=== PATIENT | female | born 1950 | race Caucasian/White ===

== ENCOUNTER → 2016-06-25 | Outpatient (CLI) | payer MEDICARE, OTHER | LOC: RAD 07:24 | PROVIDERS: ATTEND Orthopaedic Surgery | DX: T84.498A Other mechanical complication of other internal orthopedic devices, implants and grafts, initial encounter (principal); Z96.652 Presence of left artificial knee joint | CPT/HCPCS: 78315; A9503; Q9969 ==

== ENCOUNTER → 2016-09-07 | Outpatient (CLI) | payer MEDICARE, OTHER | LOC: WI 08:05 | PROVIDERS: ATTEND Family Medicine | DX: Z12.31 Encounter for screening mammogram for malignant neoplasm of breast (principal) | CPT/HCPCS: 77067; G0202 ==

== ENCOUNTER → 2017-02-02 | Outpatient (CLI) | payer MEDICARE, OTHER ==
--- NOTE | 2017-02-02 15:45 | RADIOLOGY REPORT (SQ) ---
EXAM DESCRIPTION: KUB COMPLETED DATE/TIME: 02/02/2017 10:00 am REASON FOR STUDY: CALCULUS OF KIDNEY N20.2 CALCULUS OF KIDNEY WITH CALCULUS OF URETER COMPARISON: KUB 06/04/2016, 02/18/2016, CT abdomen pelvis 12/25/2015 NUMBER OF VIEWS: One view. TECHNIQUE: Supine radiographic image of the abdomen acquired. LIMITATIONS: Motion artifact FINDINGS: BOWEL GAS PATTERN: Normal bowel gas pattern. No dilated loops. CALCIFICATIONS: 8-9 mm stone in the right lower pole kidney is unchanged. Next no calculi over the e xpected location of the right or left ureters. Unchanged calcified pelvic phleboliths. SOFT TISSUES: No gross mass or suggestion of organomegaly. HARDWARE: Lumbar fusion BONES: No acute fracture. No worrisome bone lesions. OTHER: No other significant finding. IMPRESSION: 8 to 9 mm stone over the right lower pole kidney. Motion artifact on the films. No radiopaque calculi over the expected course of the right or left ur eters. TECHNICAL DOCUMENTATION: JOB ID: [id number] [employer]™- All Rights Reserved
== END ==
LOC: OD 09:50
PROVIDERS: ATTEND Family Medicine
DX: N20.2 Calculus of kidney with calculus of ureter (principal)
CPT/HCPCS: 74000

== ENCOUNTER → 2017-02-12 | Outpatient (CLI) | payer MEDICARE, OTHER ==
--- NOTE | 2017-02-12 10:31 | RADIOLOGY REPORT (SQ) ---
EXAM DESCRIPTION: CT ABD/PELVIS NO ORAL OR IV COMPLETED DATE/TIME: 02/12/2017 7:17 am REASON FOR STUDY: KIDNEY STONE (N20.2) N20.2 CALCULUS OF KIDNEY WITH CALCULUS OF URETER COMPARISON: 12/25/2015 TECHNIQUE: CT scan of the abdomen and pelvis performed without intravenous or oral contrast. Images reviewed with lung, soft tissue, and bone windows. Reconstructed coronal and sagittal MPR images revi ewed. All images stored on PACS. All CT scanners at this facility use dose modulation, iterative reconstruction, and/or weight based d osing when appropriate to reduce radiation dose to as low as reasonably achievable (ALARA). [facility]: Dose Right [facility]: CareDose [facility]: Dose Right [facility]: Teradose 4D [facility]: Smart Technologies RADIATION DOSE: Up-to-date CT equipment and radiation dose reduction techniques were employed. CTDIv ol: 25.1 mGy. DLP: 1441 mGy-cm.mGy. LIMITATIONS: None. FINDINGS: LOWER CHEST: There is a limited area of ground-glass opacification in the left base anteri sebas on image 7. This is nonspecific. NON-CONTRASTED LIVER, SPLEEN, ADRENALS: The liver is diffusely hypodense to a mild degree. No mass i s present spleen and adrenal glands are normal PANCREAS: No masses. No peripancreatic inflammatory changes. GALLBLADDER: Surgically absent. RIGHT KIDNEY AND URETER: No suspicious masses. Assessment limited by lack of IV contrast. There is a tiny nonobstructing intrarenal calculus in the upper pole. There is a 10 mm nonobstructing calculu s the lower pole. No hydronephrosis or hydroureter. LEFT KIDNEY AND URETER: No suspicious masses. Assessment limited by lack of IV contrast. A couple o f very small nonobstructing intrarenal calculi are present. No hydronephrosis or hydroureter. AORTA AND RETROPERITONEUM: No aneurysm. No retroperitoneal masses or adenopathy. BOWEL AND PERITONEAL CAVITY: Descending colon and sigmoid diverticula are present. There are no acut e inflammatory changes. No obvious masses. APPENDIX: Surgically absent. PELVIS, BLADDER, AND ABDOMINAL WALL:The urinary bladder is incompletely filled but otherwise unremark able. The uterus is normal for age. There is no adnexal mass or fluid collection. BONES: Posterior rods are present in the spine from L3-L5. No osseous lesions are seen. Thoracolumb ar spondylosis is present. OTHER: No other significant finding. IMPRESSION: 1. Nephrolithiasis with no ureteral stone or obstruction. 2. Fatty infiltration of the liver. 3. Diverticulosis coli. 4. There is a limited area of nonspecific ground-glass opacification in the left lower lobe. COMMENT: Quality ID # [id number]: Final reports with documentation of one or more dose reduction techniques (e.g., Automated exposure control, adjustment of the mA and/or kV according to patient size, use of iterative reconstruction technique) TECHNICAL DOCUMENTATION: JOB ID: [id number] [employer]- All Rights Reserved
== END ==
LOC: RAD 06:53
PROVIDERS: ATTEND Family Medicine
DX: N20.2 Calculus of kidney with calculus of ureter (principal)
CPT/HCPCS: 74176

== ENCOUNTER 2017-06-01 22:23 | Emergency (ER) | payer MEDICARE, OTHER ==
[2017-06-01 22:33] VITALS: BP 150/80
[2017-06-02] MEDS ORDERED: LIDOCAINE 5% (700 MG) TRANSDERMAL ADH..PATCH TP ONE (00:05)
[2017-06-02] MEDS ORDERED: MORPHINE SULFATE IR 15 MG TABLET PO ONE (00:05)
[2017-06-02] MEDS ORDERED: ACETAMINOPHEN 325 MG TABLET PO ONE (00:05)
[2017-06-02] MEDS ORDERED: KETOROLAC TROMETHAMINE 60 MG/2 ML SDV IM ONE (00:06)
--- NOTE | 2017-06-02 00:07 | ER Document Report ---
ED General - General Chief Complaint: Back Pain Stated Complaint: BACK PAIN Time Seen by Provider: 06/01/17 23:31 Notes: Patient is a 67-year-old female with a past medical history of a prior lumbar spinal surgery with fusion who presents after developing a sudden, severe pain to her mid low back. Patient states that she was moving around her house when she suddenly heard a "pop" and developed the pain. She describes it as severe, constant throbbing pain to the mid to lower portion of her lumbar spinal region. She denies any associated bowel or bladder incontinence, no urinary retention, and continues to be able to ambulate. She has not tried anything to improve her pain. She states any form of movement worsens her pain. She has not seen her primary doctor regarding today's concerns. She denies a history of similar events in the past. She does note chronic daily back pain but notes it is not normally this severe. TRAVEL OUTSIDE OF THE [place] IN LAST 30 DAYS: No - Related Data Allergies/Adverse Reactions: No Known Allergies Allergy (Verified 06/01/17 23:33) Past Medical History - General Information source: Patient - Social History Smoking Status: Never Smoker Frequency of alcohol use: None Drug Abuse: None Lives with: Family Family History: Reviewed & Not Pertinent Patient has suicidal ideation: No Patient has homicidal ideation: No - Past Medical History Cardiac Medical History: Reports: Hx Hypercholesterolemia, Hx Hypertension Denies: Hx Coronary Artery Disease, Hx Heart Attack Pulmonary Medical History: Denies: Hx Asthma, Hx Bronchitis, Hx COPD, Hx Pneumonia Neurological Medical History: Denies: Hx Cerebrovascular Accident, Hx Seizures Endocrine Medical History: Reports: Hx Diabetes Mellitus Type 2 Renal/ Medical History: Denies: Hx Peritoneal Dialysis GI Medical History: Reports: Hx Gastroesophageal Reflux Disease, Hx Hiatal Hernia Musculoskeltal Medical History: Reports Hx Arthritis - DJD Infectious Medical History: Past Surgical History: Reports: Hx Appendectomy, Hx Cholecystectomy, Hx Orthopedic Surgery - Bilateral knee replacements. Denies: Hx Hysterectomy, Hx Pacemaker - Immunizations Hx Diphtheria, Pertussis, Tetanus Vaccination: Yes Hx Pneumococcal Vaccination: 02/12/11 Review of Systems - Review of Systems Notes: Constitutional: Negative for fever. HENT: Negative for sore throat. Eyes: Negative for visual changes. Cardiovascular: Negative for chest pain. Respiratory: Negative for shortness of breath. Gastrointestinal: Negative for abdominal pain, vomiting or diarrhea. Genitourinary: Negative for dysuria. Musculoskeletal: Positive for back pain. Skin: Negative for rash. Neurological: Negative for headaches, weakness or numbness. 10 point ROS negative except as marked above and in HPI. Physical Exam - Vital signs Vitals: Temp Pulse Resp BP Pulse Ox 97.9 F 92 16 150/80 H 99 06/01/17 22:32 06/01/17 22:32 06/01/17 22:32 06/01/17 22:32 06/01/17 22:32 Interpretation: Hypertensive Notes: PHYSICAL EXAMINATION: GENERAL: Appears uncomfortable but no acute distress HEAD: Atraumatic, normocephalic. EYES: Pupils equal round and reactive to light, extraocular movements intact, sclera anicteric, conjunctiva are normal. ENT: nares patent, oropharynx clear without exudates. Moist mucous membranes. NECK: Normal range of motion, supple without lymphadenopathy LUNGS: Breath sounds clear to auscultation bilaterally and equal. No wheezes rales or rhonchi. HEART: Regular rate and rhythm without murmurs ABDOMEN: Soft, nontender, normoactive bowel sounds. No guarding, no rebound. No masses appreciated. Back: Diffuse midline lumbar spinal tenderness. Surgical midline scar present. No step-offs or deformities. EXTREMITIES: Normal range of motion, no pitting or edema. No cyanosis. NEUROLOGICAL: 5 out of 5 strength both distally and proximally bilateral lower extremities. 2+ patellar reflexes bilaterally. No clonus. Sensation grossly intact in the bilateral lower extremities. Patient is able to ambulate without difficulty. PSYCH: Normal mood, normal affect. SKIN: Warm, Dry, normal turgor, no rashes or lesions noted. Course - Re-evaluation Re-evalutation: 06/02/17 00:06 Presentation of a well appearing patient complaining of acute on chronic back pain. No rapid progression of symptoms, systemic symptoms including fevers, chills, weight loss, history of recent bacterial infection, bilateral symptoms, numbness, weakness, difficulty walking, urinary retention or bowel incontinence , personal history of cancer, immunosuppression, diabetes, known AAA, or history of IV drug use. Exam is without point tenderness over vertebral bodies , pulsatile abdominal mass, and patient has symmetric and intact lower extremity strength, sensation, and reflexes without clonus. 2+ symmetric medial malleolar and dorsalis pedis pulses. Based on history and physical, I have a very low suspicion of a concerning etiology of pain including epidural compression syndrome, spinal infection, transverse myelitis, malignancy, abdominal aortic aneurysm, renal colic, acute lower extremity claudication, neurogenic claudication, ankylosing spondylitis, or other intra-abdominal process. However given patient's history of an L-spine surgery with supportive rods and hearing a "pop" will proceed with CT of the L-spine to evaluate for hardware integrity as well as any new acute lumbar spine fractures. Will also provide pain control and reassess - Vital Signs Vital signs: Temp Pulse Resp BP Pulse Ox 97.9 F 92 16 150/80 H 99 06/01/17 22:32 06/01/17 22:32 06/01/17 22:32 06/01/17 22:32 06/01/17 22:32 Discharge - Discharge Clinical Impression: Low back pain Qualifiers: Chronicity: acute Back pain laterality: bilateral Sciatica presence: without sciatica Qualified Code(s): M54.5 - Low back pain Condition: Good Disposition: HOME, SELF-CARE Additional Instructions: You have been seen in the Emergency Department (ED) today for back pain. Your workup and exam have not shown any acute abnormalities and you are likely suffering from muscle strain or possible problems with your discs, but there is no treatment that will fix your symptoms at this time. Continue taking the meloxicam has been prescribed to you for your low back pain. Take tylenol 1000mg every 6 hours for pain. Use the limited amount of oral morphine that has been prescribed for severe pain not controlled by the non-narcotic medications. You should also purchase a local lidocaine cream such as "aspercreme with lidocaine" and use per bottle instructions to the affected area. Apply heat to the area as often as you are able. Continue to keep active and avoid prolonged periods of bed rest. Please follow up with your doctor as soon as possible regarding today's ED visit and your back pain. Return to the ED for worsening back pain, fever, weakness or numbness of either leg, or if you develop either (1) an inability to urinate or have bowel movements, or (2) loss of your ability to control your bathroom functions (if you start having "accidents"), or if you develop other new symptoms that concern you.concern you. Prescriptions: Morphine Sulfate [Morphine Ir 15 mg Tablet] 15 mg PO Q4HP PRN #6 tablet PRN Reason: Referrals: LEYDI PICKERING MD [Primary Care Provider] - Follow up in 3-5 days
--- NOTE | 2017-06-02 02:36 | RADIOLOGY REPORT (SQ) ---
EXAM DESCRIPTION: CT LUMBAR SPINE WITHOUT CLINICAL HISTORY: 67 years Female, low back pain, hx surg COMPARISON: None. TECHNIQUE: No contrast, coronal and sagittal reformat. This exam was performed according to our departmental dose-optimization program, which includes automated exposure control, adjustment of the mA and/or kV according to patient size and/or use of iterative reconstruction technique. FINDINGS: Posterior hardware fusion and intervertebral disc replacement between the L3 and L5 levels, 0.5 cm L4 anterolisthesis, small L1-L2 disc bulge/osteophyte complex causes mild thecal sac compression. Small residual/recurrent foraminal disc bulge/osteophyte complex contributes to moderate-severe right L4 foraminal stenosis mild/moderate left L4 foraminal stenosis, and moderate right L3 foraminal stenosis. Bilateral sacroiliac vacuum osteoarthritis. Bony demineralization. Normal vertebral heights. IMPRESSION: L3-L5 hardware fusion and intervertebral disc replacement. Moderate to severe right L4 and moderate right L3 foraminal stenosis due to foraminal disc bulge-osteophyte complex.
== END 2017-06-02 03:00 | disposition home or self-care (01) ==
LOC: ER 22:23
DX: M54.5 Low back pain (principal); G89.29 Other chronic pain; Z98.1 Arthrodesis status; I10 Essential (primary) hypertension; E11.9 Type 2 diabetes mellitus without complications
CPT/HCPCS: 99283; 96372; 72131; A9270 ×2; J1885

== ENCOUNTER → 2017-09-23 | Outpatient (CLI) | payer MEDICARE, OTHER ==
--- NOTE | 2017-09-24 12:35 | WOMENS IMAGING REPORT ---
EXAM DESCRIPTION: 3D SCREENING MAMMO BILAT COMPLETED DATE/TIME: 09/23/2017 10:24 am REASON FOR STUDY: SCREENING MAMMO Z12.31 ENCNTR SCREEN MAMMOGRAM FOR MALIGNANT NEOPLASM OF RBOWN COMPARISON: Multiple since 2008 TECHNIQUE: Standard craniocaudal and mediolateral oblique views of each breast recorded using digita l acquisition and breast tomosynthesis. LIMITATIONS: None. FINDINGS: No masses, calcifications or architectural distortion. No areas of suspicion. Read with the assistance of CAD. .[facility] - R[facility] Cenova Version 1.3 .[facility] - R2 Cenova Version 1.3 .[facility] - R2 Cenova Version 2.4 .[facility] [place] - R2 Cenova Version 2.4 .[facility] - R2 Continuous [employer] Pickler Helper Version 9.2 IMPRESSION: NORMAL MAMMOGRAM. BIRADS 1. BREAST DENSITY: b. There are scattered areas of fibroglandular density. BIRAD: 1 NEGATIVE RECOMMENDATION: ROUTINE SCREENING Please continue bilateral screening tomosynthesis in September 2018 COMMENT: The patient has been notified of the results by letter per MQSA requirements. Additional no tification policies are in place for contacting patient with suspicious or incomplete findings. Quality ID #[id number]: The [employer] recommends an annual screening mammogram for women aged 40 years or over. This facility utilizes a reminder system to ensure that all patients receive reminder letters, and/or direct phone calls for appointments. This includes reminders for routine scr eening mammograms, diagnostic mammograms, or other Breast Imaging Interventions when appropriate. Th is patient will be placed in the appropriate reminder system. The [employer] (ACR) has developed recommendations for screening MRI of the breast s in certain patient populations, to be used in conjunction with mammography. Breast MRI surveillanc e may be appropriate for women with more than 20% lifetime risk of developing breast cancer as deter mined by genetic testing, significant family history of the disease, or history of mantle radiation f or Hodgkins Disease. ACR Practice Guidelines 2008. DBT Technology DBT is a type of tomographic mammography. With conventional mammography, overlapping breast tissue ma y make lesions difficult to detect, even with good compression. DBT uses an x-ray tube that rotates a round the breast, taking images at different angles. These images are then combined to create thin sl ices of the breast that the radiologist can view as a 3D reconstruction. The [employer] unit can perform full-field digital mammograms (2D imaging); or DBT (3D imaging); or both, in a combination mode that quickly performs both the mammogram and the tomosynthesis scan while the breast is still compressed. PQRS 6045F: Fluoroscopic imaging is not utilized for breast tomosynthesis. TECHNICAL DOCUMENTATION: FINDING NUMBER: (1) ASSESSMENT: (1) JOB ID: [id number] [employer]- All Rights Reserved Reading location - IP/workstation name: [email or web address]
== END ==
LOC: WI 08:40
PROVIDERS: ATTEND Family Medicine
DX: Z12.31 Encounter for screening mammogram for malignant neoplasm of breast (principal)
CPT/HCPCS: 77063; 77067

== ENCOUNTER → 2017-10-08 | Outpatient (CLI) | payer MEDICARE, OTHER ==
--- NOTE | 2017-10-08 16:42 | RADIOLOGY REPORT (SQ) ---
EXAM DESCRIPTION: FOREARM RIGHT COMPLETED DATE/TIME: 10/08/2017 4:34 pm REASON FOR STUDY: PAIN IN RIGHT HAND M79.641 PAIN IN RIGHT HAND COMPARISON: None. NUMBER OF VIEWS: Two views. TECHNIQUE: Two radiographic images acquired of the right forearm, including elbow and wrist in at le ast one projection. LIMITATIONS: None. FINDINGS: MINERALIZATION: Normal. BONES: No acute fracture. No worrisome bone lesions. SOFT TISSUES: No obvious swelling or foreign body. OTHER: No other significant finding. IMPRESSION: NEGATIVE STUDY OF THE RIGHT FOREARM. NO RADIOGRAPHIC EVIDENCE OF ACUTE INJURY. TECHNICAL DOCUMENTATION: JOB ID: [id number] [employer]- All Rights Reserved Reading location - IP/workstation name: [email or web address]
--- NOTE | 2017-10-08 16:44 | RADIOLOGY REPORT (SQ) ---
EXAM DESCRIPTION: HAND RIGHT 3 VIEWS COMPLETED DATE/TIME: 10/08/2017 4:34 pm REASON FOR STUDY: PAIN IN RIGHT HAND M79.641 PAIN IN RIGHT HAND COMPARISON: None. EXAM PARAMETERS: NUMBER OF VIEWS: Three views. TECHNIQUE: AP, lateral and oblique radiographic images acquired of the right hand. LIMITATIONS: None. FINDINGS: There is joint space narrowing in multiple interphalangeal joints. Osteophyte formation d istal 1st interphalangeal joint. No definite erosions. IMPRESSION: Osteoarthritis. TECHNICAL DOCUMENTATION: JOB ID: [id number] [employer]- All Rights Reserved Reading location - IP/workstation name: [email or web address]
== END ==
LOC: OD 15:59
PROVIDERS: ATTEND Family Medicine
DX: M79.641 Pain in right hand (principal); M19.041 Primary osteoarthritis, right hand

== ENCOUNTER 2018-01-12 16:57 | Emergency (ER) | payer OTHER, MEDICARE ==
[2018-01-12] MEDS ORDERED: OXYCODONE-ACETAMINOPHEN 5-325 MG TABLET PO ONE (18:06)
--- NOTE | 2018-01-12 18:34 | RADIOLOGY REPORT (SQ) ---
EXAM DESCRIPTION: KNEE RIGHT 2 VIEWS COMPLETED DATE/TIME: 01/12/2018 6:22 pm REASON FOR STUDY: knee pain COMPARISON: 12/09/2010 NUMBER OF VIEWS: Two views right knee TECHNIQUE: AP and lateral radiographic images acquired of the right knee. LIMITATIONS: None. FINDINGS: MINERALIZATION: Normal. BONES: No acute fracture or dislocation. No worrisome bone lesions. JOINT: Joint arthroplasty in place. SOFT TISSUES: No metallic foreign bodies. OTHER: No other significant finding. IMPRESSION: Nothing acute post right knee arthroplasty. TECHNICAL DOCUMENTATION: JOB ID: [id number] [employer]- All Rights Reserved Reading location - IP/workstation name: [email or web address]
--- NOTE | 2018-01-12 18:40 | RADIOLOGY REPORT (SQ) ---
EXAM DESCRIPTION: L SPINE 3 VIEWS COMPLETED DATE/TIME: 01/12/2018 6:22 pm REASON FOR STUDY: low suspicion lumbar fx mechanism COMPARISON: Comparison 09/08/[address] abdomen 02/12/2017 NUMBER OF VIEWS: Three views. TECHNIQUE: AP, lateral, and inferior coned down lateral views of the lumbar spine. LIMITATIONS: None. FINDINGS: MINERALIZATION: Normal. SEGMENTATION: Normal. No transitional anatomy. ALIGNMENT: Minimal anterolisthesis again seen L4-5, stable. VERTEBRAE: Maintained height. No fracture or worrisome bone lesion. DISCS: Multilevel disc space narrowing with osteophytes. POSTERIOR ELEMENTS: Pedicles and facets are intact. No pars defect or posterior arch defects. Facet arthropathy is present. HARDWARE: Intact hardware bridges L3 through L5. PARASPINAL SOFT TISSUES: 12 mm stone projected over the left kidney. PELVIS: Intact as visualized. No fractures or worrisome bone lesions. SI joints intact. OTHER: No other significant finding. IMPRESSION: Postsurgical and degenerative changes lumbar spine. TECHNICAL DOCUMENTATION: JOB ID: [id number] [employer]- All Rights Reserved Reading location - IP/workstation name: [facility]
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
[2018-01-12 20:40] VITALS: BP 145/73
== END 2018-01-12 20:31 | disposition home or self-care (01) ==
LOC: ER 16:57
DX: S80.211A Abrasion, right knee, initial encounter (principal); M54.5 Low back pain; M25.561 Pain in right knee; V49.9XXA Car occupant (driver) (passenger) injured in unspecified traffic accident, initial encounter; I10 Essential (primary) hypertension; E11.9 Type 2 diabetes mellitus without complications; Z98.1 Arthrodesis status
CPT/HCPCS: 72100; 99283

== ENCOUNTER → 2018-05-19 | Outpatient (CLI) | payer MEDICARE, OTHER ==
--- NOTE | 2018-05-19 11:13 | RADIOLOGY REPORT (SQ) ---
EXAM DESCRIPTION: MRI LUMBAR SPINE WITHOUT COMPLETED DATE/TIME: 05/19/2018 10:52 am REASON FOR STUDY: LOW BACK PAIN (M54.5) M54.5 LOW BACK PAIN COMPARISON: None. TECHNIQUE: Sagittal and Axial imaging includes T1, T2, STIR and gradient echo sequences. Coronal T2/ HASTE imaging. LIMITATIONS: Susceptibility artifact. FINDINGS: VISUALIZED UPPER ABDOMEN: Limited evaluation. No acute or suspicious findings suggested. SEGMENTATION: No transitional anatomy. The lowest well-developed disc space is labeled L5-S1. ALIGNMENT: Grade 1 spondylolisthesis L4-5. VERTEBRAE: Intact. BONE MARROW: Normal. No marrow replacement or reactive changes. DISC SIGNAL: Desiccation multiple levels. POSTERIOR ELEMENTS: See below. HARDWARE: Posterior fusion L3-4 and L4-5. CORD AND CONUS: Normal in size and signal intensity. Conus at the appropriate level. SOFT TISSUES: No aortic aneurysm seen. No bulky retroperitoneal adenopathy or mass. No paraspinal mas s or fluid. L1-L2: Minimal narrowing of the spinal canal due to small right paracentral disc protrusion. L2-L3: Mild spinal stenosis due to disc osteophyte complex and facet arthropathy. L3-L4: Prior posterior decompression. Canal is widely patent. L4-L5: Prior posterior decompression. Canal is widely patent. L5-S1: Disc bulge and facet arthropathy. No significant stenosis. LOWER THORACIC: Incompletely imaged. No stenosis seen. SACRUM: Visualized upper sacrum intact. OTHER: No other significant findings. IMPRESSION: Spondylosis, facet arthropathy and mild malalignment. Mild spinal stenosis L2-3 status post posterior decompression and fusion L3-4 and L4-5. TECHNICAL DOCUMENTATION: JOB ID: [id number]- All Rights Reserved Reading location - IP/workstation name: [email or web address]
== END ==
LOC: RAD 09:25
PROVIDERS: ATTEND Family Medicine
DX: M54.5 Low back pain (principal); M47.896 Other spondylosis, lumbar region; M48.061 Spinal stenosis, lumbar region without neurogenic claudication
CPT/HCPCS: 72148

== ENCOUNTER → 2018-06-21 | Outpatient (CLI) | payer MEDICARE, OTHER ==
--- NOTE | 2018-06-21 09:40 | RADIOLOGY REPORT (SQ) ---
EXAM DESCRIPTION: LUMBAR SPINE W/FLEX/EXT COMPLETED DATE/TIME: 06/21/2018 9:25 am REASON FOR STUDY: LPB;RADICULOPATHY,LUMBAR REGION M54.5 LOW BACK PAIN M54.16 RADICULOPATHY, LUMBAR REGION COMPARISON: 01/12/2018. NUMBER OF VIEWS: Seven views. TECHNIQUE: AP, lateral, obliques, flexion, extension, and sacral radiographic images acquired. LIMITATIONS: None. FINDINGS: MINERALIZATION: Normal. SEGMENTATION: Normal. No transitional anatomy. ALIGNMENT: Mild grade 1 anterolisthesis of L 4 on L5. FLEXION/EXTENSION: No instability. VERTEBRAE: Maintained height. No fracture or worrisome bone lesion. DISCS: Preserved height. Small osteophytes. POSTERIOR ELEMENTS: Posterior fusion and hardware. HARDWARE: Hardware from L3-L5. PARASPINAL SOFT TISSUES: Normal. PELVIS: Intact as visualized. No fractures or worrisome bone lesions. SI joints intact. OTHER: No other significant finding. IMPRESSION: STABLE MILD DEGENERATIVE CHANGES. SURGICAL CHANGES WITH FUSION AND HARDWARE. NO INSTABILITY ON FLEXION/EXTENSION. TECHNICAL DOCUMENTATION: JOB ID: [id number] [employer]- All Rights Reserved Reading location - IP/workstation name: [email or web address]
== END ==
LOC: OD 09:03
PROVIDERS: ATTEND Neurological Surgery
DX: M54.5 Low back pain (principal); M54.16 Radiculopathy, lumbar region
CPT/HCPCS: 72114

== ENCOUNTER → 2018-09-13 | Outpatient (CLI) | payer MEDICARE, OTHER ==
--- NOTE | 2018-09-13 11:05 | WOMENS IMAGING REPORT ---
EXAM DESCRIPTION: 3D SCREENING MAMMO BILAT COMPLETED DATE/TIME: 09/13/2018 9:54 am REASON FOR STUDY: Z12.31 ROUTINE 3D BILATERAL SCREENING Z12.31 ENCNTR SCREEN MAMMOGRAM FOR MALIGNAN T NEOPLASM OF BROWN COMPARISON: 09/23/2017 and 09/07/2016. TECHNIQUE: Standard craniocaudal and mediolateral oblique views of each breast recorded using digita l acquisition and breast tomosynthesis. LIMITATIONS: None. FINDINGS: No masses, calcifications or architectural distortion. No areas of suspicion. Read with the assistance of CAD. .[facility] - R2 Cenova Version 1.3 .[facility] Imaging - R2 Cenova Version 2.1 .[facility] Imaging - R2 Cenova Version 2.4 .[facility] [place] - R2 Cenova Version 2.4 .[facility] - R2 Client Operations Manager Version 9.2 IMPRESSION: NORMAL MAMMOGRAM. BIRADS 1. BREAST DENSITY: b. There are scattered areas of fibroglandular density. BIRAD: 1 NEGATIVE RECOMMENDATION: ROUTINE SCREENING COMMENT: The patient has been notified of the results by letter per SA requirements. Additional no tification policies are in place for contacting patient with suspicious or incomplete findings. Quality ID #225: The [employer] recommends an annual screening mammogram for women aged 40 years or over. This facility utilizes a reminder system to ensure that all patients receive reminder letters, and/or direct phone calls for appointments. This includes reminders for routine scr eening mammograms, diagnostic mammograms, or other Breast Imaging Interventions when appropriate. Th is patient will be placed in the appropriate reminder system. The [employer] (ACR) has developed recommendations for screening MRI of the breast s in certain patient populations, to be used in conjunction with mammography. Breast MRI surveillanc e may be appropriate for women with more than 20% lifetime risk of developing breast cancer as deter mined by genetic testing, significant family history of the disease, or history of mantle radiation f or Hodgkins Disease. ACR Practice Guidelines 2008. DBT Technology DBT is a type of tomographic mammography. With conventional mammography, overlapping breast tissue ma y make lesions difficult to detect, even with good compression. DBT uses an x-ray tube that rotates a round the breast, taking images at different angles. These images are then combined to create thin sl ices of the breast that the radiologist can view as a 3D reconstruction. The [employer] unit can perform full-field digital mammograms (2D imaging); or DBT (3D imaging); or both, in a combination mode that quickly performs both the mammogram and the tomosynthesis scan while the breast is still compressed. PQRS 6045F: Fluoroscopic imaging is not utilized for breast tomosynthesis. TECHNICAL DOCUMENTATION: FINDING NUMBER: (1) ASSESSMENT: (1) JOB ID: [id number] [employer]- All Rights Reserved Reading location - IP/workstation name: [email or web address]
== END ==
LOC: WI 09:29
PROVIDERS: ATTEND Family Medicine
DX: Z12.31 Encounter for screening mammogram for malignant neoplasm of breast (principal)
CPT/HCPCS: 77063; 77067

== ENCOUNTER → 2019-03-09 | Outpatient (CLI) | payer MEDICARE, OTHER ==
--- NOTE | 2019-03-09 10:43 | RADIOLOGY REPORT (SQ) ---
EXAM DESCRIPTION: LUMBAR SPINE COMPLETE COMPLETED DATE/TIME: 03/09/2019 9:17 am REASON FOR STUDY: RADICULOPATHY, SITE UNSPECIFIED M54.10 RADICULOPATHY, SITE UNSPECIFIED COMPARISON: Lumbar spine films 01/12/2018, 06/21/2018 MRI lumbar spine 05/19/2018 CT abdomen pelvis 02/12/2017 NUMBER OF VIEWS: Five views including obliques. TECHNIQUE: AP, lateral, oblique, and sacral radiographic images acquired of the lumbar spine. LIMITATIONS: None. FINDINGS: MINERALIZATION: Normal. SEGMENTATION: Short ribs at T12. ALIGNMENT: Minimal grade 1 anterolisthesis of L2 over L3. Fusion with minimal residual anterolisthes is of L3 over L4, and L4 over L5. VERTEBRAE: Maintained height. No fracture or worrisome bone lesion. DISCS: Preserved height. No significant osteophytes or end plate irregularity. POSTERIOR ELEMENTS: Bilateral laminectomy at L4, bilateral facet arthropathy at L3-4 HARDWARE: Bilateral transpedicular screws dorsal fixation plates at the L3-L4 and L4-5 levels. Disc space prostheses at L3-4 and L4-5. PARASPINAL SOFT TISSUES: Right lower pole intrarenal nonobstructive 12 mm stone unchanged from CT abd omen pelvis 02/12/2017 PELVIS: Intact as visualized. No fractures or worrisome bone lesions. SI joints intact. OTHER: No other significant finding. IMPRESSION: Post fusion at L4-5 and L5-S1. Facet arthropathy at L3-4. TECHNICAL DOCUMENTATION: JOB ID: [id number] [employer]- All Rights Reserved Reading location - IP/workstation name: [email or web address]
== END ==
LOC: OD 09:02
PROVIDERS: ATTEND Family Medicine
DX: M54.17 Radiculopathy, lumbosacral region (principal); Z98.1 Arthrodesis status
CPT/HCPCS: 72110

== ENCOUNTER → 2019-07-10 | Outpatient (CLI) | payer MEDICARE, OTHER ==
--- NOTE | 2019-07-10 08:36 | RADIOLOGY REPORT (SQ) ---
EXAM DESCRIPTION: C SP 4 OR 5 VIEWS COMPLETED DATE/TIME: 07/10/2019 8:27 am REASON FOR STUDY: CERVICALGIA M54.2 CERVICALGIA COMPARISON: None. NUMBER OF VIEWS: Five views including obliques. TECHNIQUE: AP, lateral, obliques and odontoid radiographic images acquired of the cervical spine. LIMITATIONS: None. FINDINGS: MINERALIZATION: Normal. ALIGNMENT: Normal. VERTEBRAE: Maintained height. No fracture or worrisome bone lesion. DISCS: Multilevel disc space narrowing with osteophytes. POSTERIOR ELEMENTS: Pedicles and facets are intact. No posterior arch defects. Facet arthropathy is present. FORAMINA: Left neural foramina are inadequately visualized. There is foraminal narrowing on the righ t at C2-3, C5-C6 and C6-C7. HARDWARE: None in the spine. PARASPINAL SOFT TISSUES: Normal. OTHER: No other significant finding. IMPRESSION: SPONDYLOSIS WITHOUT BONE LESION OR FRACTURE. TECHNICAL DOCUMENTATION: JOB ID: [id number] [employer]- All Rights Reserved Reading location - IP/workstation name: [email or web address]
== END ==
LOC: OD 08:07
PROVIDERS: ATTEND Physician Assistant
DX: M47.892 Other spondylosis, cervical region (principal); M54.2 Cervicalgia
CPT/HCPCS: 72050

== ENCOUNTER 2020-06-24 02:19 | Inpatient (IN) | payer MEDICARE, OTHER ==
[2020-06-24 03:02] LABS: VENOUS BLOOD BASE EXCESS -0.8 mmol/L; VENOUS BLOOD HCO3 22.6 mmol/L (20-32); VENOUS BLOOD PCO2 33.7 mmHg (35-63); VENOUS BLOOD PH 7.45 (7.30-7.42)
[2020-06-24 03:20] LABS: ABSOLUTE LYMPHOCYTES (AUTO) 1.7 10^3/uL (0.5-4.7); ABSOLUTE MONOCYTES (AUTO) 0.4 10^3/uL (0.1-1.4); ABSOLUTE NEUT (AUTO) 5.5 10^3/uL (1.7-8.2); BASOPHILS % (AUTO) 0.4 % (0-2); HEMATOCRIT 36.9 % (36.0-47.0); HEMOGLOBIN 12.4 g/dL (12.0-15.5); LYMPHOCYTES % (AUTO) 22.1 % (13-45); MEAN CORPUSCULAR HEMOGLOBIN 26.9 pg (27.0-33.4); MEAN CORPUSCULAR HGB CONC 33.5 g/dL (32.0-36.0); MEAN CORPUSCULAR VOLUME 80 fl (80-97); MONOCYTES % (AUTO) 4.9 % (3-13); PLATELET COUNT 173 10^3/uL (150-450); RED BLOOD COUNT 4.61 10^6/uL (3.72-5.28); RED CELL DISTRIBUTION WIDTH 14.9 % (11.5-14.0); SEGMENTED NEUTROPHILS % (AUTO) 72.6 % (42-78); TOTAL CELLS COUNTED % (AUTO) 100 %; WHITE BLOOD COUNT 7.6 10^3/uL (4.0-10.5)
--- NOTE | 2020-06-24 03:31 | RADIOLOGY REPORT (SQ) ---
XR CHEST 1 VIEW CLINICAL STATEMENT: shortness of breath, cough COMPARISON: 02/04/2016 FINDINGS: Heart is mildly enlarged. Bilateral lower lobe patchy airspace disease consistent with pneumonia. No pneumothorax. No pleural effusions. IMPRESSION: Bilateral lower lobe patchy pneumonia.
[2020-06-24 03:39] LABS: INTERNATIONAL RATION (INR) 1.05; PROTHROMBIN TIME 13.9 SEC (11.4-15.4)
[2020-06-24 04:06] LABS: APPEARANCE,URINE SLIGHTLY-CLOUDY; BILIRUBIN,URINE NEGATIVE (NEGATIVE); COLOR,URINE YELLOW; GLUCOSE, URINE >=500 mg/dL (NEGATIVE); KETONES,URINE 20 mg/dL (NEGATIVE); PROTEIN,URINE 30 mg/dL (NEGATIVE); URINE SPECIFIC GRAVITY 1.023; UROBILINOGEN,URINE NEGATIVE mg/dL (<2.0)
[2020-06-24 04:16] LABS: ALBUMIN 3.4 g/dL (3.5-5.0); ALKALINE PHOSPHATASE 65 U/L (38-126); ANION GAP 12 (5-19); ASPARTATE AMINO TRANSFERASE 49 U/L (14-36); BILIRUBIN,DIRECT 0.4 mg/dL (0.0-0.4); BILIRUBIN,TOTAL 0.8 mg/dL (0.2-1.3); BLOOD UREA NITROGEN 19 mg/dL (7-20); CALCIUM 10.9 mg/dL (8.4-10.2); CARBON DIOXIDE 23 mmol/L (22-30); CHLORIDE 99 mmol/L (98-107); GLUCOSE 331 mg/dL (75-110); POTASSIUM 4.5 mmol/L (3.6-5.0); TOTAL PROTEIN 6.6 g/dL (6.3-8.2)
[2020-06-24] MEDS ORDERED: RINGERS SOLUTION,LACTATED 1,000 ML IV ONE (05:38)
--- NOTE | 2020-06-24 05:40 | ER Document Report ---
ED Respiratory Problem - General Chief Complaint: Shortness Of Breath Stated Complaint: DIFFICULTY BREATHING Time Seen by Provider: 06/24/20 05:26 Primary Care Provider: NIMO ORDOÑEZ PA-C [Primary Care Provider] - Follow up as needed Mode of Arrival: Wheelchair Information source: Patient Notes: 70-year-old female with past medical history significant for hypertension and diabetes presents to the emergency room complaining of worsening cough and shortness of breath since . has been running fevers at home of 102. Has been taking Tylenol with minimal relief. Patient states her was diagnosed with Covid 2 weeks ago but she did not become symptomatic until . [facility] she saw her primary care office on Wednesday who did a Covid test but she does not have the results. [facility] she was prescribed amoxicillin and prednisone which she has been taking without relief. Denies any nausea, vomiting. [facility] she has a pulse ox at home and her O2 saturations have been 86. She is not on home oxygen. TRAVEL OUTSIDE OF THE [place] IN LAST 30 DAYS: No - Related Data Allergies/Adverse Reactions: No Known Allergies Allergy (Verified 06/01/17 23:33) Home Medications: Prednisone, Amoxicillin Past Medical History - General Information source: Patient - Social History Smoking Status: Never Smoker Frequency of alcohol use: None Drug Abuse: None Family History: Reviewed & Not Pertinent Patient has homicidal ideation: No - Past Medical History Cardiac Medical History: Reports: Hx Hypercholesterolemia, Hx Hypertension Denies: Hx Coronary Artery Disease, Hx Heart Attack Pulmonary Medical History: Denies: Hx Asthma, Hx Bronchitis, Hx COPD, Hx Pneumonia Neurological Medical History: Denies: Hx Cerebrovascular Accident, Hx Seizures Endocrine Medical History: Reports: Hx Diabetes Mellitus Type 2 Renal/ Medical History: Denies: Hx Peritoneal Dialysis GI Medical History: Reports: Hx Gastroesophageal Reflux Disease, Hx Hiatal Hernia Musculoskeletal Medical History: Reports Hx Arthritis - DJD Infectious Medical History: Past Surgical History: Reports: Hx Appendectomy, Hx Cholecystectomy, Hx Orthopedic Surgery - Bilateral knee replacements. Denies: Hx Hysterectomy, Hx Pacemaker - Immunizations Hx Diphtheria, Pertussis, Tetanus Vaccination: Yes Hx Pneumococcal Vaccination: 02/12/11 Review of Systems - Review of Systems Constitutional: Fever, Malaise EENT: No symptoms reported Cardiovascular: No symptoms reported Respiratory: Cough, Hurts to breathe, Short of breath Gastrointestinal: No symptoms reported Genitourinary: No symptoms reported Musculoskeletal: No symptoms reported Skin: No symptoms reported Neurological/Psychological: No symptoms reported -: Yes All other systems reviewed and negative Physical Exam - Vital signs Vitals: Temp Pulse Resp BP Pulse Ox 100.0 F 131 H 23 H 186/68 H 92 06/24/20 02:25 06/24/20 02:25 06/24/20 02:25 06/24/20 02:25 06/24/20 02:25 - General General appearance: Appears well, Alert In distress: Moderate - HEENT Head: Normocephalic, Atraumatic Eyes: Normal Pupils: PERRL - Respiratory Respiratory status: Respiratory distress, Tachypnea, Tripod position Chest status: Nontender Breath sounds: Normal Chest palpation: Normal - Cardiovascular Rhythm: Tachycardia Heart sounds: Normal auscultation Murmur: No - Neurological Neuro grossly intact: Yes Cognition: Normal Orientation: AAOx4 Trish Coma Scale Eye Opening: Spontaneous Trish Coma Scale Verbal: Oriented [place] Coma Scale Motor: Obeys Commands Trish Coma Scale Total: 15 Speech: Normal Motor strength normal: LUE, RUE, LLE, RLE Sensory: Normal - Skin Skin Temperature: Warm Skin Moisture: Dry Skin Color: Normal Course - Re-evaluation Re-evalutation: 06/24/20 06:52 Patient with persistent shortness of breath, tachycardic, tachypneic. Has a hard time catching her breath. O2 sats dropped to 88 when her oxygen is removed or with any type of exertion. - Vital Signs Vital signs: Temp Pulse Resp BP Pulse Ox 98.9 F 131 H 25 H 139/59 H 96 06/24/20 05:01 06/24/20 02:25 06/24/20 06:00 06/24/20 05:01 06/24/20 06:00 - Laboratory Results Result Diagrams: 06/24/20 02:48 06/24/20 02:48 Laboratory Results Interpreted: 06/24/20 06/24/20 06/24/20 02:48 02:48 02:48 MCH 26.9 L RDW 14.9 H VBG pH 7.45 H VBG pCO2 33.7 L Sodium 134.0 L Est GFR (MDRD) Non-Af 57 L Glucose 331 H POC Glucose Lactic Acid Calcium 10.9 H AST 49 H Albumin 3.4 L Urine Protein Urine Glucose (UA) Urine Ketones Leukocyte Esterase Rfl Urine Ascorbic Acid SARS-CoV-2 (PCR) 06/24/20 06/24/20 06/24/20 02:48 03:34 03:45 MCH RDW VBG pH VBG pCO2 Sodium Est GFR (MDRD) Non-Af Glucose POC Glucose 342 H Lactic Acid 2.5 H Calcium AST Albumin Urine Protein 30 H Urine Glucose (UA) >=500 H Urine Ketones 20 H Leukocyte Esterase Rfl TRACE H Urine Ascorbic Acid 40 H SARS-CoV-2 (PCR) 06/24/20 05:47 MCH RDW VBG pH VBG pCO2 Sodium Est GFR (MDRD) Non-Af Glucose POC Glucose Lactic Acid Calcium AST Albumin Urine Protein Urine Glucose (UA) Urine Ketones Leukocyte Esterase Rfl Urine Ascorbic Acid SARS-CoV-2 (PCR) DETECTED H Critical Laboratory Results Reviewed: Yes - Lactic 2.5 Attending or Supervising Physician who Reviewed Labs: SADIQ KEYES IV - IV fluids - Radiology Results Critical Radiology Results Reviewed: Yes - Bibasilar pneumonia Attending or Supervising Physician who Reviewed Radiology: SADIQ KEYES IV - Rapid Covid test - EKG Interpretation by Me Rate: Tachycardia Additional EKG results interpreted by me: 06/24/20 05:59 EKG was interpreted by ER physician Dr. Keyes No acute STEMI Sinus tachycardia Rate 123 LVH with secondary repolar[address] ST wave abnormality Unchanged from previous EKG of 02/05/2016 - Consults Dr. Godfrey Time consulted: 07:34 Reason for consultation: 06/24/20 07:34 Discussed lab, x-ray, physical exam, vital signs with Dr. Godfrey. He would like the patient to get started on azithromycin IV, Decadron 6 mg IV. Also would like CT angio chest. Admit to IMCU Consulted provider: will see as inpatient Discharge - Discharge Clinical Impression: Pneumonia due to COVID-19 virus, Tachycardia, Tachypnea Dyspnea Qualifiers: Dyspnea type: shortness of breath Qualified Code(s): R06.02 - Shortness of breath; R06.00 - Dyspnea, unspecified; R06.01 - Orthopnea Condition: Good Disposition: ADMITTED INPATIENT Admitting Provider: [facility] Admitted: IMCU Referrals: NIMO ORDOÑEZ PA-C [Primary Care Provider] - Follow up as needed
[2020-06-24] MEDS ORDERED: ACETAMINOPHEN 325 MG TABLET PO ONE (05:48)
[2020-06-24] MEDS ORDERED: AZITHROMYCIN INJ 500 MG VIAL IV ONE (07:35)
[2020-06-24] MEDS ORDERED: DEXAMETHASONE SOD PHOS INJ 10 MG/1 ML VIAL IV ONE (07:35)
--- NOTE | 2020-06-24 07:35 | EKG REPORT ---
SEVERITY:- ABNORMAL ECG - SINUS TACHYCARDIA LVH WITH SECONDARY REPOLARIZATION ABNORMALITY : Confirmed by: Caleb Marshall 24-Jun-2020 07:35:20
[2020-06-24] MEDS ORDERED: IPRATROPIUM/ALBUTEROL 0.5-2.5 MG/3 ML AMPUL NEB PRN (08:31)
[2020-06-24] MEDS ORDERED: ACETAMINOPHEN 325 MG TABLET PO PRN (08:31)
[2020-06-24] MEDS ORDERED: DEXTROSE 40% GEL 15 GM TUBE PO PRN ×4 (08:38→11:04)
[2020-06-24] MEDS ORDERED: GLUCAGON,HUMAN RECOMB 1 MG INJ IM PRN ×2 (08:38→11:04)
[2020-06-24] MEDS ORDERED: DEXTROSE 50%-WATER 25 GM/50 ML DISP.SYRIN IV PRN ×4 (08:38→11:04)
[2020-06-24] MEDS ORDERED: INSULIN LISPRO 100 UNIT/ML 3 ML VIAL ONE ×2 (09:10→21:52)
[2020-06-24] MEDS ORDERED: CEFTRIAXONE 1 GM/D5W RTU 1 GM/50 ML RTUPB IV SCH (10:00)
[2020-06-24] MEDS: INSULIN LISPRO 100 UNIT/ML 3 ML VIAL SUBCUT SCH ×3 (10:04→21:54)
--- NOTE | 2020-06-24 10:21 | RADIOLOGY REPORT (SQ) ---
EXAM DESCRIPTION: CTA CHEST IMAGES COMPLETED DATE/TIME: 06/24/2020 9:43 am REASON FOR STUDY: dyspnea COMPARISON: AP view of the chest from 06/24/2020. TECHNIQUE: CT scan of the chest performed using helical scanning technique with dynamic intravenous contrast injection. Images reviewed with lung, soft tissue and bone windows. Reconstructed coronal and sagittal MPR images reviewed. Additional 3 dimensional post-processing performed to develop Maximal Intensity Projection images ([place] P). All images stored on PACS. All CT scanners at this facility use dose modulation, iterative reconstruction, and/or weight based d osing when appropriate to reduce radiation dose to as low as reasonably achievable (ALARA). [facility]: Dose Right [facility]: CareDose [facility]: Dose Right [facility]: Teradose 4D [facility]: Harir CONTRAST TYPE AND DOSE: Contrast/concentration: Isovue 350.00 mmol/ml; Total Contrast Delivered: 70. 0 ml; Total Saline Delivered: 52.9 ml Contrast bolus optimized for the pulmonary arteries. RENAL FUNCTION: GFR > 60. RADIATION DOSE: CT Rad equipment meets quality standard of care and radiation dose reduction techniq ues were employed. CTDIvol: 6.6 - 39.1 mGy. DLP: 1330 mGy-cm. LIMITATIONS: None. FINDINGS: LUNGS AND PLEURA: The trachea and main bronchi are patent. There are patchy bilateral and asymmetric geographic areas of ground-glass attenuation without a discrete distributional predilecti on. There is no associated mass, pleural effusion or pneumothorax. AORTA AND GREAT VESSELS: No aneurysm or dissection of the thoracic aorta. HEART: Cardiomegaly. There is no pericardial effusion. PULMONARY ARTERIES: No central or segmental pulmonary emboli. HILAR AND MEDIASTINAL STRUCTURES: No adenopathy or mass. HARDWARE: None in the chest. UPPER ABDOMEN: Hepatic steatosis. THYROID AND OTHER SOFT TISSUES: No adenopathy or mass. BONES: Findings of DISH in the thoracic spine. 3D MIPS: Confirm above findings. OTHER: No other findings. IMPRESSION: 1. No central or segmental pulmonary emboli. Evaluation of the subsegmental branches of the pulmonary arteries is limited due to respiratory motion artifact. 2. Patchy bilateral and asymmetric geographic areas of ground-glass attenuation without a discrete di stributional predilection. Clinical correlation to exclude a multifocal pneumonia (including atypica l infections such as COVID-19) is recommended. COMMENT: Quality ID # [id number]: Final reports with documentation of one or more dose reduction techniques (e.g., Automated exposure control, adjustment of the mA and/or kV according to patient size, use of iterative reconstruction technique) TECHNICAL DOCUMENTATION: JOB ID: [id number] [employer]- All Rights Reserved Reading location - IP/workstation name: [email or web address]
[2020-06-24] MEDS: ENOXAPARIN SODIUM INJ 40 MG/0.4 ML DISP.SYRIN SUBCUT SCH (11:25)
[2020-06-24] MEDS: DOCUSATE SODIUM 100 MG CAPSULE PO SCH ×2 (11:26→17:19)
[2020-06-24] MEDS: ASPIRIN 81 MG TABLET, ENT COATED PO SCH (11:26)
[2020-06-24] MEDS: ASCORBIC ACID 500 MG TABLET PO SCH ×2 (11:26→17:21)
[2020-06-24] MEDS: ZINC SULFATE 220 MG CAPSULE PO SCH (11:26)
[2020-06-24] MEDS: DEXAMETHASONE SOD PHOS INJ 10 MG/1 ML VIAL IV SCH (11:26)
[2020-06-24] MEDS: CHOLECALCIFEROL (D3) 1,000 UNIT (25 MCG) TABLET PO SCH (11:26)
[2020-06-24] MEDS: FAMOTIDINE 20 MG TABLET PO SCH ×2 (11:26→21:31)
[2020-06-24] MEDS ORDERED: INSULIN LISPRO 100 UNIT/ML 3 ML VIAL SUBCUT ONE ×2 (12:00→17:45)
[2020-06-24] MEDS ORDERED: INSULIN GLARGINE,HUM.REC.ANLOG 1,000 UNIT/10 ML VIAL (PYX) SUBCUT ONE (13:30)
--- NOTE | 2020-06-24 13:48 | PDOC H&P ---
History of Present Illness Admission Date/PCP: 06/24/20 08:26 NIMO ORDOÑEZ PA-C Patient complains of: Shortness of breathand cough and fever History of Present Illness: HERON NI is a 70 year old female 70-year-old female with a history of the type 2 diabetes hypertension hyperlipidemia chronic back problems morbid obesity Came to the emergency dep artment With a complaining of cough and shortness of breath and fever started since last Patient has been diagnosed with the Covid last week Patient started with a fever cough shortness of breath couple of days back In the emergency department patient O2 sat was 80%Patient was put on oxygen Patient's denied any chest pain still very short of breath Patient's Covid test is positive Patient at this time admit with the Covid protocol Past Medical History Cardiac Medical History: Reports: Hyperlipidema, Hypertension Denies: Coronary Artery Disease, Myocardial Infarction Pulmonary Medical History: Denies: Asthma, Bronchitis, Chronic Obstructive Pulmonary Disease (COPD), Pneumonia Neurological Medical History: Denies: Seizures Endocrine Medical History: Reports: Diabetes Mellitus Type 2 GI Medical History: Reports: Gastroesophageal Reflux Disease, Hiatal Hernia Musculoskeltal Medical History: Reports: Arthritis - DJD Hematology: Denies: Anemia Past Surgical History Past Surgical History: Reports: Appendectomy, Cholecystectomy, Orthopedic Surg rose - Bilateral knee replacements, Tubal Ligation Denies: Hysterectomy, Pacemaker Social History Information Source: Patient Smoking Status: Never Smoker Hx Recreational Drug Use: No Hx Prescription Drug Abuse: No Family History Family History: Reviewed & Not Pertinent Parental Family History Reviewed: Yes Children Family History Reviewed: Yes Sibling(s) Family History Reviewed.: Yes Medication/Allergy Home Medications: Escitalopram Oxalate [Lexapro 10 Mg Tablet] 20 mg PO DAILY 07/25/11 Gabapentin [Neurontin 400 Mg Capsule] 800 mg PO BID 07/25/11 Metformin HCl [Glucophage 500 Mg Tablet] 1,000 mg PO BID 07/25/11 Metoprolol Succinate [Toprol-Xl 25 Mg Tab.Sr] 50 mg PO DAILY 07/25/11 Aspirin [Aspirin 81 mg Chewable Tablet] 81 mg PO DAILY 10/27/11 Dexlansoprazole [Dexilant] 60 mg PO DAILY 10/27/11 Fenofibrate Nanocrystallized [Fenofibrate] 48 mg PO DAILY 02/03/16 Ferrous Sulfate [Iron] 325 mg PO DAILY 02/03/16 Valsartan/Hydrochlorothiazide [Valsartan-Hctz 320-12.5 mg Tab] 1 each PO DAILY 02/03/16 Morphine Sulfate [Morphine Ir 15 mg Tablet] 15 mg PO Q4HP PRN #6 tablet 06/02/17 Hydrocodone/Acetaminophen [[place] 5-325 mg Tablet] 1 tab PO QID #20 tablet 01/12/18 Lidocaine HCl [Xylocaine 5% Ointment 35.44 gm] 35.44 applic TP DAILY 7 Days #1 tube 01/12/18 Allergies/Adverse Reactions: No Known Allergies Allergy (Verified 06/01/17 23:33) Review of Systems Constitutional: PRESENT: fatigue, fever(s). ABSENT: chills, headache(s), weight gain, weight loss Eyes: ABSENT: visual disturbances Ears: ABSENT: hearing changes Cardiovascular: PRESENT: dyspnea on exertion. ABSENT: chest pain, edema, orthropnea, palpitations Respiratory: PRESENT: cough, dyspnea. ABSENT: hemoptysis Gastrointestinal: ABSENT: abdominal pain, constipation, diarrhea, hematemesis, hematochezia, nausea, vomiting Genitourinary: ABSENT: dysuria, hematuria Musculoskeletal: ABSENT: joint swelling Integumentary: ABSENT: rash, wounds Neurological: ABSENT: abnormal gait, abnormal speech, confusion, dizziness, focal weakness, syncope Psychiatric: ABSENT: anxiety, depression, homidical ideation, suicidal ideation Endocrine: ABSENT: cold intolerance, heat intolerance, menstrual abnormalities, polydipsia, polyuria Hematologic/Lymphatic: ABSENT: easy bleeding, easy bruising, lymphadenopathy Physical Exam Vital Signs: Temp Pulse Resp BP Pulse Ox 98.9 F 131 H 25 H 139/59 H 96 06/24/20 05:01 06/24/20 02:25 06/24/20 06:00 06/24/20 05:01 06/24/20 06:00 Intake & Output 06/23/20 06/24/20 06/25/20 06:59 06:59 06:59 Intake Total 1000 250 Balance 1000 250 Weight 104.326 kg General appearance: PRESENT: mild distress, well-developed, well-nourished Head exam: PRESENT: atraumatic, normocephalic Eye exam: PRESENT: conjunctiva pink, EOMI, PERRLA. ABSENT: scleral icterus Ear exam: PRESENT: normal external ear exam Mouth exam: PRESENT: moist, tongue midline Neck exam: PRESENT: full ROM. ABSENT: carotid bruit, JVD, lymphadenopathy, thyromegaly Respiratory exam: PRESENT: clear to auscultation sam Cardiovascular exam: PRESENT: RRR. ABSENT: diastolic murmur, rubs, systolic murmur Pulses: PRESENT: normal dorsalis pedis pul, +2 pedal pulses bilateral Vascular exam: PRESENT: normal capillary refill GI/Abdominal exam: PRESENT: normal bowel sounds, soft. ABSENT: distended, guard ing, mass, organolmegaly, rebound, tenderness Rectal exam: PRESENT: deferred Neurological exam: PRESENT: alert, awake, oriented to person, oriented to place, oriented to time, oriented to situation. ABSENT: motor sensory deficit Psychiatric exam: PRESENT: appropriate affect, normal mood. ABSENT: homicidal ideation, suicidal ideation Skin exam: PRESENT: dry, intact, warm. ABSENT: cyanosis, rash Results Laboratory Results: 06/24/20 02:48 06/24/20 02:48 06/24/20 06/24/20 06/24/20 02:48 02:48 02:48 WBC 7.6 RBC 4.61 Hgb 12.4 Hct 36.9 MCV 80 MCH 26.9 L MCHC 33.5 RDW 14.9 H Plt Count 173 Seg Neutrophils % 72.6 VBG pH 7.45 H VBG pCO2 33.7 L VBG HCO3 22.6 VBG Base Excess -0.8 Sodium 134.0 L Potassium 4.5 Chloride 99 Carbon Dioxide 23 Anion Gap 12 BUN 19 Creatinine 0.97 Est GFR ( Amer) > 60 Glucose 331 H Lactic Acid Calcium 10.9 H Total Bilirubin 0.8 AST 49 H Alkaline Phosphatase 65 Total Protein 6.6 Albumin 3.4 L Urine Color Urine Appearance Urine pH Ur Specific Hart Urine Protein Urine Glucose (UA) Urine Ketones Urine Blood Urine RBC (Auto) 06/24/20 06/24/20 06/24/20 02:48 03:34 07:07 WBC RBC Hgb Hct MCV MCH MCHC RDW Plt Count Seg Neutrophils % VBG pH VBG pCO2 VBG HCO3 VBG Base Excess Sodium Potassium Chloride Carbon Dioxide Anion Gap BUN Creatinine Est GFR ( Amer) Glucose Lactic Acid 2.5 H 1.7 Calcium Total Bilirubin AST Alkaline Phosphatase Total Protein Albumin Urine Color YELLOW Urine Appearance SLIGHTLY-CLOUDY Urine pH 6.0 Ur Specific Hart 1.023 Urine Protein 30 H Urine Glucose (UA) >=500 H Urine Ketones 20 H Urine Blood NEGATIVE Urine RBC (Auto) 4 06/24/20 07:07 WBC RBC Hgb Hct MCV MCH MCHC RDW Plt Count Seg Neutrophils % VBG pH VBG pCO2 VBG HCO3 VBG Base Excess Sodium Potassium Chloride Carbon Dioxide Anion Gap BUN Creatinine Est GFR ( Amer) Glucose Lactic Acid Cancelled Calcium Total Bilirubin AST Alkaline Phosphatase Total Protein Albumin Urine Color Urine Appearance Urine pH Ur Specific Hart Urine Protein Urine Glucose (UA) Urine Ketones Urine Blood Urine RBC (Auto) 06/24/20 02:48 Troponin I < 0.012 Impressions: Chest X-Ray 06/24/20 02:40 IMPRESSION: Bilateral lower lobe patchy pneumonia. Assessment & Plan - Diagnosis (1) Acute respiratory failure with hypoxia Is this a current diagnosis for this admission?: Yes Plan: Hypoxia due to the Covid Oxygens Supplement (2) Pneumonia due to COVID-19 virus Is this a current diagnosis for this admission?: Yes Plan: Covid protocol (3) Type 2 diabetes mellitus Qualifiers: Diabetes mellitus nursing home insulin use: with nursing home use Is this a current diagnosis for this admission?: Yes Plan: Sliding scale (4) Hypertension Qualifiers: Hypertension type: essential hypertension Qualified Code(s): I10 - Essential (primary) hypertension Is this a current diagnosis for this admission?: Yes Plan: Continues current medications (5) Hyperlipidemia Qualifiers: Hyperlipidemia type: unspecified Qualified Code(s): E78.5 - Hyperlipidemia, unspecified Is this a current diagnosis for this admission?: Yes (6) Chronic back pain Qualifiers: Back pain location: low back pain Is this a current diagnosis for this admission?: Yes (7) Tachycardia Is this a current diagnosis for this admission?: Yes Plan: Related to the fever and respiratory issues with the Covid - Time Time Spent: 30 to 50 Minutes Medications reviewed and adjusted accordingly: Yes Anticipated Discharge Disposition: Home with Home Health Anticipated Discharge Timeframe: when stabl - Inpatient Certification Based on my medical assessment, after consideration of the patient's comorbidities, presenting symptoms, or acuity I expect that the services needed warrant INPATIENT care.: Yes I certify that my determination is in accordance with my understanding of Medicare's requirements for reasonable and necessary INPATIENT services [42 CFR 412.3e].: Yes Medical Necessity: Significant Comorbidiites Make Outpatient Treatment Too [place]is [place], Need Close Monitoring Due to Risk of Patient Decompensation, Need For Continuous Telemetry Monitoring, Need for IV Antibiotics 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
[2020-06-24] MEDS ORDERED: REMDESIVIR 200 MG in NORMAL SALINE 250 ML IV ONE (14:00)
[2020-06-24] MEDS: MECLIZINE HCL 25 MG TABLET PO SCH (17:21)
[2020-06-24] MEDS ORDERED: (PENDING PHARMACY ID) (Gabapentin [Neurontin] 600 MG Tablet) PO SCH (18:00)
[2020-06-24] MEDS: CEFEPIME 1 GM/D5W RTU 1 GM/50 ML RTUPB IV SCH (21:30)
[2020-06-24] MEDS: GABAPENTIN 300 MG CAPSULE PO SCH (21:31)
[2020-06-24] MEDS ORDERED: INSULIN GLARGINE,HUM.REC.ANLOG 1,000 UNIT/10 ML VIAL SUBCUT SCH ×2 (22:00)
[2020-06-25] MEDS: PANTOPRAZOLE SODIUM 40 MG TABLET.DR PO SCH (05:07)
[2020-06-25 06:18] LABS: ABSOLUTE LYMPHOCYTES (AUTO) 1.2 10^3/uL (0.5-4.7); ABSOLUTE MONOCYTES (AUTO) 0.4 10^3/uL (0.1-1.4); ABSOLUTE NEUT (AUTO) 3.7 10^3/uL (1.7-8.2); HEMATOCRIT 31.4 % (36.0-47.0); HEMOGLOBIN 10.6 g/dL (12.0-15.5); LYMPHOCYTES % (AUTO) 21.9 % (13-45); MEAN CORPUSCULAR HEMOGLOBIN 26.8 pg (27.0-33.4); MEAN CORPUSCULAR HGB CONC 33.6 g/dL (32.0-36.0); MEAN CORPUSCULAR VOLUME 80 fl (80-97); MONOCYTES % (AUTO) 7.8 % (3-13); PLATELET COUNT 173 10^3/uL (150-450); RED BLOOD COUNT 3.94 10^6/uL (3.72-5.28); RED CELL DISTRIBUTION WIDTH 14.2 % (11.5-14.0); SEGMENTED NEUTROPHILS % (AUTO) 70.3 % (42-78); TOTAL CELLS COUNTED % (AUTO) 100 %; WHITE BLOOD COUNT 5.3 10^3/uL (4.0-10.5)
[2020-06-25 06:47] LABS: ALBUMIN 2.9 g/dL (3.5-5.0); ALKALINE PHOSPHATASE 55 U/L (38-126); ANION GAP 8 (5-19); ASPARTATE AMINO TRANSFERASE 39 U/L (14-36); BILIRUBIN,DIRECT 0.4 mg/dL (0.0-0.4); BILIRUBIN,TOTAL 0.5 mg/dL (0.2-1.3); BLOOD UREA NITROGEN 25 mg/dL (7-20); CALCIUM 10.3 mg/dL (8.4-10.2); CARBON DIOXIDE 23 mmol/L (22-30); CHLORIDE 103 mmol/L (98-107); GLUCOSE 346 mg/dL (75-110); POTASSIUM 4.5 mmol/L (3.6-5.0); TOTAL PROTEIN 5.8 g/dL (6.3-8.2)
[2020-06-25] MEDS ORDERED: DEXLANSOPRAZOLE 60 MG PO SCH (10:00)
[2020-06-25] MEDS ORDERED: LEVOCETIRIZINE DIHYDROCHLORIDE 5 MG PO SCH (10:00)
[2020-06-25] MEDS ORDERED: (PENDING PHARMACY ID) (Valsartan/Hydrochlorothiazide [Valsartan-Hctz 320-12.5 Mg Tab] 1 EA PO SCH (10:00)
[2020-06-25] MEDS: VALSARTAN 160 MG TABLET PO SCH (10:41)
[2020-06-25] MEDS: AZITHROMYCIN 250 MG TABLET PO SCH (10:42)
[2020-06-25] MEDS: CHOLECALCIFEROL (D3) 1,000 UNIT (25 MCG) TABLET PO SCH (10:42)
[2020-06-25] MEDS: ZINC SULFATE 220 MG CAPSULE PO SCH (10:42)
[2020-06-25] MEDS: HYDROCHLOROTHIAZIDE 12.5 MG TABLET PO SCH (10:42)
[2020-06-25] MEDS: GABAPENTIN 300 MG CAPSULE PO SCH ×2 (10:42→21:35)
[2020-06-25] MEDS: MECLIZINE HCL 25 MG TABLET PO SCH ×2 (10:42→18:24)
[2020-06-25] MEDS: ESCITALOPRAM OXALATE 10 MG TABLET PO SCH (10:42)
[2020-06-25] MEDS: DOCUSATE SODIUM 100 MG CAPSULE PO SCH ×3 (10:42→18:31)
[2020-06-25] MEDS: DEXAMETHASONE SOD PHOS INJ 10 MG/1 ML VIAL IV SCH (10:43)
[2020-06-25] MEDS: ASCORBIC ACID 500 MG TABLET PO SCH ×2 (10:43→18:24)
[2020-06-25] MEDS: ENOXAPARIN SODIUM INJ 40 MG/0.4 ML DISP.SYRIN SUBCUT SCH (10:43)
[2020-06-25] MEDS: ASPIRIN 81 MG TABLET, ENT COATED PO SCH (10:43)
[2020-06-25] MEDS: FAMOTIDINE 20 MG TABLET PO SCH ×2 (10:43→21:35)
[2020-06-25] MEDS: METOPROLOL SUCCINATE 50 MG TAB.SR.24H PO SCH (10:43)
[2020-06-25] MEDS: CEFEPIME 1 GM/D5W RTU 1 GM/50 ML RTUPB IV SCH ×2 (10:45→21:34)
[2020-06-25] MEDS: REMDESIVIR 100 MG in NORMAL SALINE 250 ML IV SCH (10:45)
[2020-06-25] MEDS: CETIRIZINE 5 MG TABLET PO SCH (10:46)
[2020-06-25] MEDS: INSULIN LISPRO 100 UNIT/ML 3 ML VIAL SUBCUT SCH ×4 (10:49→21:34)
--- NOTE | 2020-06-25 12:14 | PDOC PROGRESS REPORT ---
Subjective Date:: 06/25/20 Subjective:: Patient is currently doing well on 3 L nasal cannula No fever no chills And on IV antibiotics and antiviral drugs and also received the plasma treatments Patient's denied any chest pain no shortness of the breath Patient's blood sugar required to adjust the insulin due to the steroid Reason For Visit: COVID PNEUMONIA Physical Exam Vital Signs: Temp Pulse Resp BP Pulse Ox 98.1 F 95 20 128/58 H 97 06/25/20 04:13 06/25/20 04:13 06/25/20 04:13 06/25/20 04:13 06/25/20 04:13 Intake & Output 06/24/20 06/25/20 06/26/20 06:59 06:59 06:59 Intake Total 1000 1578 Output Total 2200 Balance 1000 -622 Weight 104.326 kg 103.5 kg Results Laboratory Results: 06/25/20 05:55 06/25/20 05:55 06/24/20 06/25/20 06/25/20 09:40 05:55 05:55 WBC 5.3 RBC 3.94 Hgb 10.6 L Hct 31.4 L MCV 80 MCH 26.8 L MCHC 33.6 RDW 14.2 H Plt Count 173 Seg Neutrophils % 70.3 Sodium 134.0 L Potassium 4.5 Chloride 103 Carbon Dioxide 23 Anion Gap 8 BUN 25 H Creatinine 0.76 Est GFR ( Amer) > 60 Glucose 346 H Calcium 10.3 H Ferritin 135.00 Total Bilirubin 0.5 AST 39 H Alkaline Phosphatase 55 C-Reactive Protein 138.0 H Total Protein 5.8 L Albumin 2.9 L Blood Type A POSITIVE 06/24/20 02:48 Troponin I < 0.012 Impressions: Chest X-Ray 06/24/20 02:40 IMPRESSION: Bilateral lower lobe patchy pneumonia. Chest/Abdomen CTA 06/24/20 07:36 IMPRESSION: 1. No central or segmental pulmonary emboli. Evaluation of the subsegmental branches of the pulmonary arteries is limited due to respiratory motion artifact. 2. Patchy bilateral and asymmetric geographic areas of ground-glass attenuation without a discrete distributional predilection. Clinical correlation to exclude a multifocal pneumonia (including atypical infections such as COVID-19) is recommended. 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 Is this a current diagnosis for this admission?: Yes (4) Hypertension Qualifiers: Hypertension type: essential hypertension Qualified Code(s): I10 - Essential (primary) hypertension Is this a current diagnosis for this admission?: Yes (5) Hyperlipidemia Qualifiers: Hyperlipidemia type: unspecified Qualified Code(s): E78.5 - Hyperlipidemia, unspecified Is this a current diagnosis for this admission?: Yes (6) Chronic back pain Qualifiers: Back pain location: low back pain Is this a current diagnosis for this admission?: Yes (7) Tachycardia Is this a current diagnosis for this admission?: Yes - Time Time Spent with patient: Less than 15 minutes Level of Care: IMCU Medications reviewed and adjusted accordingly: Yes Anticipated discharge: Home with Homehealth Anticipated DC Timeframe: Other - Plan Summary Plan Summary: Adjust the insulin continues the current medications urine cultures grew up to 10,000 colony already on antibiotic Discussed with the patient regarding the patient's current conditions
[2020-06-25] MEDS: INSULIN GLARGINE,HUM.REC.ANLOG 1,000 UNIT/10 ML VIAL SUBCUT SCH (21:35)
[2020-06-26] MEDS: PANTOPRAZOLE SODIUM 40 MG TABLET.DR PO SCH (06:11)
[2020-06-26 06:58] LABS: ABSOLUTE LYMPHOCYTES (AUTO) 1.6 10^3/uL (0.5-4.7); ABSOLUTE MONOCYTES (AUTO) 0.6 10^3/uL (0.1-1.4); ABSOLUTE NEUT (AUTO) 4.5 10^3/uL (1.7-8.2); BASOPHILS % (AUTO) 0.1 % (0-2); HEMATOCRIT 32.6 % (36.0-47.0); HEMOGLOBIN 10.9 g/dL (12.0-15.5); LYMPHOCYTES % (AUTO) 23.8 % (13-45); MEAN CORPUSCULAR HEMOGLOBIN 26.7 pg (27.0-33.4); MEAN CORPUSCULAR HGB CONC 33.6 g/dL (32.0-36.0); MEAN CORPUSCULAR VOLUME 80 fl (80-97); MONOCYTES % (AUTO) 8.8 % (3-13); PLATELET COUNT 228 10^3/uL (150-450); RED BLOOD COUNT 4.09 10^6/uL (3.72-5.28); RED CELL DISTRIBUTION WIDTH 14.8 % (11.5-14.0); SEGMENTED NEUTROPHILS % (AUTO) 67.3 % (42-78); TOTAL CELLS COUNTED % (AUTO) 100 %; WHITE BLOOD COUNT 6.7 10^3/uL (4.0-10.5)
[2020-06-26 07:17] LABS: ALBUMIN 2.9 g/dL (3.5-5.0); ALKALINE PHOSPHATASE 60 U/L (38-126); ANION GAP 7 (5-19); ASPARTATE AMINO TRANSFERASE 40 U/L (14-36); BILIRUBIN,DIRECT 0.4 mg/dL (0.0-0.4); BILIRUBIN,TOTAL 0.5 mg/dL (0.2-1.3); BLOOD UREA NITROGEN 33 mg/dL (7-20); C-REACTIVE PROTEIN 48.2 mg/L (<10.0); CALCIUM 10.4 mg/dL (8.4-10.2); CARBON DIOXIDE 24 mmol/L (22-30); CHLORIDE 102 mmol/L (98-107); GLUCOSE 305 mg/dL (75-110); POTASSIUM 4.4 mmol/L (3.6-5.0); TOTAL PROTEIN 5.8 g/dL (6.3-8.2)
--- NOTE | 2020-06-26 09:54 | PDOC PROGRESS REPORT ---
Subjective Date:: 06/26/20 Subjective:: Patient is Feeling much better except some mild difficulty in swallowing Patient's denied any chest pain no shortness of the breath currently in a 92% oxygen saturations Patient's CRP is also coming down Reason For Visit: COVID PNEUMONIA Physical Exam Vital Signs: Temp Pulse Resp BP Pulse Ox 97.5 F 77 24 H 126/50 H 91 L 06/26/20 03:35 06/26/20 03:35 06/26/20 03:35 06/26/20 03:35 06/26/20 03:35 Intake & Output 06/25/20 06/26/20 06/27/20 06:59 06:59 06:59 Intake Total 1578 1770 Output Total 2200 300 Balance -622 1470 Weight 103.5 kg 102.8 kg General appearance: PRESENT: no acute distress Eye exam: PRESENT: PERRLA Mouth exam: PRESENT: neck supple Respiratory exam: PRESENT: clear to auscultation sam Cardiovascular exam: PRESENT: +S1, +S2 GI/Abdominal exam: PRESENT: normal bowel sounds, soft Neurological exam: PRESENT: alert, awake, oriented to person Skin exam: PRESENT: dry Results Laboratory Results: 06/26/20 06:20 06/26/20 06:20 06/26/20 06/26/20 06:20 06:20 WBC 6.7 RBC 4.09 Hgb 10.9 L Hct 32.6 L MCV 80 MCH 26.7 L MCHC 33.6 RDW 14.8 H Plt Count 228 Seg Neutrophils % 67.3 Sodium 133.2 L Potassium 4.4 Chloride 102 Carbon Dioxide 24 Anion Gap 7 BUN 33 H Creatinine 0.81 Est GFR ( Amer) > 60 Glucose 305 H Calcium 10.4 H Ferritin 135.00 Total Bilirubin 0.5 AST 40 H Alkaline Phosphatase 60 C-Reactive Protein 48.2 H Total Protein 5.8 L Albumin 2.9 L 06/24/20 03:34 Clean Catch Midstream Urine Culture - Final Serratia Marcescens C.albicans/C.dubliniensis 06/24/20 02:48 Troponin I < 0.012 Impressions: Chest X-Ray 06/24/20 02:40 IMPRESSION: Bilateral lower lobe patchy pneumonia. Chest/Abdomen CTA 06/24/20 07:36 IMPRESSION: 1. No central or segmental pulmonary emboli. Evaluation of the subsegmental branches of the pulmonary arteries is limited due to respiratory motion artifact. 2. Patchy bilateral and asymmetric geographic areas of ground-glass attenuation without a discrete distributional predilection. Clinical correlation to exclude a multifocal pneumonia (including atypical infections such as COVID-19) is recommended. Assessment & Plan - Diagnosis (1) Acute respiratory failure with hypoxia Is this a current diagnosis for this admission?: Yes (2) Pneumonia due to COVID-19 virus Is this a current diagnosis for this admission?: Yes (3) Type 2 diabetes mellitus Qualifiers: Diabetes mellitus alf insulin use: with alf use Is this a current diagnosis for this admission?: Yes (4) Hypertension Qualifiers: Hypertension type: essential hypertension Qualified Code(s): I10 - Essential (primary) hypertension Is this a current diagnosis for this admission?: Yes (5) Hyperlipidemia Qualifiers: Hyperlipidemia type: unspecified Qualified Code(s): E78.5 - Hyperlipidemia, unspecified Is this a current diagnosis for this admission?: Yes (6) Chronic back pain Qualifiers: Back pain location: low back pain Is this a current diagnosis for this admission?: Yes (7) Tachycardia Is this a current diagnosis for this admission?: Yes - Time Time Spent with patient: 15-24 minutes Level of Care: IMCU Medications reviewed and adjusted accordingly: Yes Anticipated discharge: Other Anticipated DC Timeframe: Other - Plan Summary Plan Summary: Will get the swallow evaluations get the speech therapy Start the patient on nystatinOral suspensions Continues to current medications
[2020-06-26] MEDS: INSULIN LISPRO 100 UNIT/ML 3 ML VIAL SUBCUT SCH ×4 (10:09→22:13)
[2020-06-26] MEDS: CEFEPIME 1 GM/D5W RTU 1 GM/50 ML RTUPB IV SCH ×2 (10:09→22:13)
[2020-06-26] MEDS: REMDESIVIR 100 MG in NORMAL SALINE 250 ML IV SCH (10:09)
[2020-06-26] MEDS: INSULIN GLARGINE,HUM.REC.ANLOG 1,000 UNIT/10 ML VIAL SUBCUT SCH ×2 (10:10→22:15)
[2020-06-26] MEDS: GABAPENTIN 300 MG CAPSULE PO SCH ×2 (10:10→22:13)
[2020-06-26] MEDS: CHOLECALCIFEROL (D3) 1,000 UNIT (25 MCG) TABLET PO SCH (10:11)
[2020-06-26] MEDS: ESCITALOPRAM OXALATE 10 MG TABLET PO SCH (10:11)
[2020-06-26] MEDS: AZITHROMYCIN 250 MG TABLET PO SCH (10:11)
[2020-06-26] MEDS: ASPIRIN 81 MG TABLET, ENT COATED PO SCH (10:11)
[2020-06-26] MEDS: ZINC SULFATE 220 MG CAPSULE PO SCH (10:11)
[2020-06-26] MEDS: METOPROLOL SUCCINATE 50 MG TAB.SR.24H PO SCH (10:11)
[2020-06-26] MEDS: VALSARTAN 160 MG TABLET PO SCH (10:11)
[2020-06-26] MEDS: DOCUSATE SODIUM 100 MG CAPSULE PO SCH ×3 (10:11→18:02)
[2020-06-26] MEDS: FAMOTIDINE 20 MG TABLET PO SCH ×2 (10:12→22:13)
[2020-06-26] MEDS: ENOXAPARIN SODIUM INJ 40 MG/0.4 ML DISP.SYRIN SUBCUT SCH (10:12)
[2020-06-26] MEDS: ASCORBIC ACID 500 MG TABLET PO SCH ×2 (10:12→18:02)
[2020-06-26] MEDS: HYDROCHLOROTHIAZIDE 12.5 MG TABLET PO SCH (10:12)
[2020-06-26] MEDS: MECLIZINE HCL 25 MG TABLET PO SCH ×2 (10:12→18:02)
[2020-06-26] MEDS: DEXAMETHASONE SOD PHOS INJ 10 MG/1 ML VIAL IV SCH (10:12)
[2020-06-26] MEDS: CETIRIZINE 5 MG TABLET PO SCH (10:13)
[2020-06-26] MEDS: NYSTATIN 500000 UNIT/5 ML UDCUP PO SCH ×4 (13:14→23:54)
[2020-06-27 06:00] LABS: ABSOLUTE LYMPHOCYTES (AUTO) 2.1 10^3/uL (0.5-4.7); ABSOLUTE MONOCYTES (AUTO) 0.6 10^3/uL (0.1-1.4); ABSOLUTE NEUT (AUTO) 3.3 10^3/uL (1.7-8.2); BASOPHILS % (AUTO) 0.2 % (0-2); LYMPHOCYTES % (AUTO) 34.7 % (13-45); MEAN CORPUSCULAR HEMOGLOBIN 27.4 pg (27.0-33.4); MEAN CORPUSCULAR HGB CONC 34.5 g/dL (32.0-36.0); MEAN CORPUSCULAR VOLUME 79 fl (80-97); MONOCYTES % (AUTO) 10.5 % (3-13); PLATELET COUNT 243 10^3/uL (150-450); RED BLOOD COUNT 4.04 10^6/uL (3.72-5.28); RED CELL DISTRIBUTION WIDTH 14.5 % (11.5-14.0); SEGMENTED NEUTROPHILS % (AUTO) 54.6 % (42-78); TOTAL CELLS COUNTED % (AUTO) 100 %
[2020-06-27] MEDS: PANTOPRAZOLE SODIUM 40 MG TABLET.DR PO SCH (06:02)
[2020-06-27] MEDS: NYSTATIN 500000 UNIT/5 ML UDCUP PO SCH ×4 (06:02→23:11)
[2020-06-27 06:23] LABS: ALBUMIN 2.9 g/dL (3.5-5.0); ALKALINE PHOSPHATASE 61 U/L (38-126); ANION GAP 5 (5-19); ASPARTATE AMINO TRANSFERASE 38 U/L (14-36); BILIRUBIN,DIRECT 0.4 mg/dL (0.0-0.4); BILIRUBIN,TOTAL 0.5 mg/dL (0.2-1.3); BLOOD UREA NITROGEN 30 mg/dL (7-20); C-REACTIVE PROTEIN 27.5 mg/L (<10.0); CALCIUM 10.2 mg/dL (8.4-10.2); CARBON DIOXIDE 26 mmol/L (22-30); CHLORIDE 104 mmol/L (98-107); GLUCOSE 231 mg/dL (75-110); POTASSIUM 4.2 mmol/L (3.6-5.0); TOTAL PROTEIN 5.8 g/dL (6.3-8.2)
[2020-06-27] MEDS: DOCUSATE SODIUM 100 MG CAPSULE PO SCH ×3 (10:00→18:00)
[2020-06-27] MEDS: ENOXAPARIN SODIUM INJ 40 MG/0.4 ML DISP.SYRIN SUBCUT SCH (10:26)
[2020-06-27] MEDS: DEXAMETHASONE SOD PHOS INJ 10 MG/1 ML VIAL IV SCH (10:27)
[2020-06-27] MEDS: GABAPENTIN 300 MG CAPSULE PO SCH ×2 (10:27→22:30)
[2020-06-27] MEDS: HYDROCHLOROTHIAZIDE 12.5 MG TABLET PO SCH (10:28)
[2020-06-27] MEDS: AZITHROMYCIN 250 MG TABLET PO SCH (10:28)
[2020-06-27] MEDS: ESCITALOPRAM OXALATE 10 MG TABLET PO SCH (10:28)
[2020-06-27] MEDS: ZINC SULFATE 220 MG CAPSULE PO SCH (10:29)
[2020-06-27] MEDS: ASCORBIC ACID 500 MG TABLET PO SCH ×2 (10:29→18:43)
[2020-06-27] MEDS: ASPIRIN 81 MG TABLET, ENT COATED PO SCH (10:29)
[2020-06-27] MEDS: METOPROLOL SUCCINATE 50 MG TAB.SR.24H PO SCH (10:29)
[2020-06-27] MEDS: MECLIZINE HCL 25 MG TABLET PO SCH ×2 (10:29→18:43)
[2020-06-27] MEDS: CHOLECALCIFEROL (D3) 1,000 UNIT (25 MCG) TABLET PO SCH (10:29)
[2020-06-27] MEDS: FAMOTIDINE 20 MG TABLET PO SCH ×2 (10:29→22:30)
[2020-06-27] MEDS: VALSARTAN 160 MG TABLET PO SCH (10:30)
[2020-06-27] MEDS: CEFEPIME 1 GM/D5W RTU 1 GM/50 ML RTUPB IV SCH ×2 (10:31→22:30)
[2020-06-27] MEDS: INSULIN LISPRO 100 UNIT/ML 3 ML VIAL SUBCUT SCH ×4 (10:36→22:31)
[2020-06-27] MEDS: INSULIN GLARGINE,HUM.REC.ANLOG 1,000 UNIT/10 ML VIAL SUBCUT SCH ×2 (10:38→22:31)
[2020-06-27] MEDS: CETIRIZINE 5 MG TABLET PO SCH (10:41)
--- NOTE | 2020-06-27 11:27 | PDOC PROGRESS REPORT ---
Subjective Date:: 06/27/20 Subjective:: Patient is feeling much better No chest pain no shortness of the breath Oxygen level is much better with currently pretty much in the room air Reason For Visit: COVID PNEUMONIA Physical Exam Vital Signs: Temp Pulse Resp BP Pulse Ox 97.8 F 73 20 135/53 H 98 06/27/20 08:12 06/27/20 08:12 06/27/20 08:12 06/27/20 08:12 06/27/20 08:12 Intake & Output 06/26/20 06/27/20 06/28/20 06:59 06:59 06:59 Intake Total 1770 1231 Output Total 300 Balance 1470 1231 Weight 102.8 kg 102.5 kg General appearance: PRESENT: no acute distress, well-developed, well-nourished Head exam: PRESENT: atraumatic, normocephalic Eye exam: PRESENT: conjunctiva pink, EOMI, PERRLA. ABSENT: scleral icterus Ear exam: PRESENT: normal external ear exam Mouth exam: PRESENT: moist, tongue midline Neck exam: PRESENT: full ROM. ABSENT: carotid bruit, JVD, lymphadenopathy, thyromegaly Cardiovascular exam: PRESENT: RRR. ABSENT: diastolic murmur, rubs, systolic murmur Vascular exam: PRESENT: normal capillary refill GI/Abdominal exam: PRESENT: normal bowel sounds, soft. ABSENT: distended, guarding, mass, organolmegaly, rebound, tenderness Rectal exam: PRESENT: deferred Neurological exam: PRESENT: alert, awake, oriented to person, oriented to place, oriented to time, oriented to situation. ABSENT: motor sensory deficit Psychiatric exam: PRESENT: appropriate affect, normal mood. ABSENT: homicidal ideation, suicidal ideation Skin exam: PRESENT: dry, intact, warm. ABSENT: cyanosis, rash Results Laboratory Results: 06/27/20 05:28 06/27/20 05:28 06/27/20 06/27/20 05:28 05:28 WBC 6.0 RBC 4.04 Hgb 11.0 L Hct 32.0 L MCV 79 L MCH 27.4 MCHC 34.5 RDW 14.5 H Plt Count 243 Seg Neutrophils % 54.6 Sodium 135.0 L Potassium 4.2 Chloride 104 Carbon Dioxide 26 Anion Gap 5 BUN 30 H Creatinine 0.73 Est GFR ( Amer) > 60 Glucose 231 H Calcium 10.2 Ferritin 130.00 Total Bilirubin 0.5 AST 38 H Alkaline Phosphatase 61 C-Reactive Protein 27.5 H Total Protein 5.8 L Albumin 2.9 L 06/24/20 03:34 Clean Catch Midstream Urine Culture - Final Serratia Marcescens C.albicans/C.dubliniensis 06/24/20 02:48 Troponin I < 0.012 Impressions: Chest X-Ray 06/24/20 02:40 IMPRESSION: Bilateral lower lobe patchy pneumonia. Chest/Abdomen CTA 06/24/20 07:36 IMPRESSION: 1. No central or segmental pulmonary emboli. Evaluation of the subsegmental branches of the pulmonary arteries is limited due to respiratory motion artifact. 2. Patchy bilateral and asymmetric geographic areas of ground-glass attenuation without a discrete distributional predilection. Clinical correlation to exclude a multifocal pneumonia (including atypical infections such as COVID-19) is recommended. 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 Is this a current diagnosis for this admission?: Yes (4) Hypertension Qualifiers: Hypertension type: essential hypertension Qualified Code(s): I10 - Essential (primary) hypertension Is this a current diagnosis for this admission?: Yes (5) Hyperlipidemia Qualifiers: Hyperlipidemia type: unspecified Qualified Code(s): E78.5 - Hyperlipidemia, unspecified Is this a current diagnosis for this admission?: Yes (6) Chronic back pain Qualifiers: Back pain location: low back pain Is this a current diagnosis for this admission?: Yes (7) Tachycardia Is this a current diagnosis for this admission?: Yes - Time Time Spent with patient: 15-24 minutes Level of Care: IMCU Medications reviewed and adjusted accordingly: Yes Anticipated discharge: Home with Homehealth Anticipated DC Timeframe: within 72 hours - Plan Summary Plan Summary: Continues the current medications
[2020-06-27] MEDS: REMDESIVIR 100 MG in NORMAL SALINE 250 ML IV SCH (11:35)
[2020-06-28] MEDS: NYSTATIN 500000 UNIT/5 ML UDCUP PO SCH ×4 (05:18→23:04)
[2020-06-28] MEDS: PANTOPRAZOLE SODIUM 40 MG TABLET.DR PO SCH (05:18)
[2020-06-28 06:32] LABS: ABSOLUTE LYMPHOCYTES (AUTO) 2.2 10^3/uL (0.5-4.7); ABSOLUTE MONOCYTES (AUTO) 0.7 10^3/uL (0.1-1.4); ABSOLUTE NEUT (AUTO) 2.7 10^3/uL (1.7-8.2); BASOPHILS % (AUTO) 0.2 % (0-2); EOSINOPHILS % (AUTO) 0.3 % (0-6); HEMATOCRIT 32.2 % (36.0-47.0); HEMOGLOBIN 11.2 g/dL (12.0-15.5); LYMPHOCYTES % (AUTO) 39.7 % (13-45); MEAN CORPUSCULAR HEMOGLOBIN 27.4 pg (27.0-33.4); MEAN CORPUSCULAR HGB CONC 34.7 g/dL (32.0-36.0); MEAN CORPUSCULAR VOLUME 79 fl (80-97); MONOCYTES % (AUTO) 12.2 % (3-13); PLATELET COUNT 245 10^3/uL (150-450); RED BLOOD COUNT 4.08 10^6/uL (3.72-5.28); RED CELL DISTRIBUTION WIDTH 14.3 % (11.5-14.0); SEGMENTED NEUTROPHILS % (AUTO) 47.6 % (42-78); TOTAL CELLS COUNTED % (AUTO) 100 %; WHITE BLOOD COUNT 5.6 10^3/uL (4.0-10.5)
[2020-06-28 06:51] LABS: ALBUMIN 2.9 g/dL (3.5-5.0); ALKALINE PHOSPHATASE 59 U/L (38-126); ANION GAP 8 (5-19); ASPARTATE AMINO TRANSFERASE 36 U/L (14-36); BILIRUBIN,DIRECT 0.3 mg/dL (0.0-0.4); BILIRUBIN,TOTAL 0.5 mg/dL (0.2-1.3); BLOOD UREA NITROGEN 28 mg/dL (7-20); C-REACTIVE PROTEIN 17.7 mg/L (<10.0); CALCIUM 10.5 mg/dL (8.4-10.2); CARBON DIOXIDE 24 mmol/L (22-30); CHLORIDE 104 mmol/L (98-107); GLUCOSE 187 mg/dL (75-110); POTASSIUM 4.2 mmol/L (3.6-5.0); TOTAL PROTEIN 5.8 g/dL (6.3-8.2)
--- NOTE | 2020-06-28 10:01 | PDOC PROGRESS REPORT ---
Subjective Date:: 06/28/20 Subjective:: Patient is currently doing much better Where a 3 to 4 L nasal cannula No chest pain no shortness of the breath Blood work is all stable Patient is received antiviral treatment and plasma treatments currently on antibiotics Reason For Visit: COVID PNEUMONIA Physical Exam Vital Signs: Temp Pulse Resp BP Pulse Ox 97.5 F 61 19 123/51 L 95 06/28/20 04:28 06/28/20 04:28 06/28/20 04:28 06/28/20 04:28 06/28/20 04:28 Intake & Output 06/27/20 06/28/20 06/29/20 06:59 06:59 06:59 Intake Total 1231 1280 Output Total 300 Balance 1231 980 Weight 102.5 kg 101 kg General appearance: PRESENT: no acute distress, well-developed, well-nourished Head exam: PRESENT: atraumatic, normocephalic Eye exam: PRESENT: conjunctiva pink, EOMI, PERRLA. ABSENT: scleral icterus Ear exam: PRESENT: normal external ear exam Mouth exam: PRESENT: moist, tongue midline Neck exam: PRESENT: full ROM. ABSENT: carotid bruit, JVD, lymphadenopathy, thyromegaly Respiratory exam: PRESENT: clear to auscultation sam Cardiovascular exam: PRESENT: RRR. ABSENT: diastolic murmur, rubs, systolic murmur Vascular exam: PRESENT: normal capillary refill GI/Abdominal exam: PRESENT: normal bowel sounds, soft. ABSENT: distended, guarding, mass, organolmegaly, rebound, tenderness Rectal exam: PRESENT: deferred Musculoskeletal exam: PRESENT: ambulatory Neurological exam: PRESENT: alert, awake, oriented to person, oriented to place, oriented to time, oriented to situation, CN II-XII grossly intact. ABSENT: motor sensory deficit Psychiatric exam: PRESENT: appropriate affect, normal mood. ABSENT: homicidal ideation, suicidal ideation Skin exam: PRESENT: dry, intact, warm. ABSENT: cyanosis, rash Results Laboratory Results: 06/28/20 05:55 06/28/20 05:52 06/28/20 06/28/20 05:52 05:55 WBC 5.6 RBC 4.08 Hgb 11.2 L Hct 32.2 L MCV 79 L MCH 27.4 MCHC 34.7 RDW 14.3 H Plt Count 245 Seg Neutrophils % 47.6 Sodium 136.2 L Potassium 4.2 Chloride 104 Carbon Dioxide 24 Anion Gap 8 BUN 28 H Creatinine 0.71 Est GFR ( Amer) > 60 Glucose 187 H Calcium 10.5 H Ferritin 112.00 Total Bilirubin 0.5 AST 36 Alkaline Phosphatase 59 C-Reactive Protein 17.7 H Total Protein 5.8 L Albumin 2.9 L 06/24/20 02:48 Troponin I < 0.012 Impressions: Chest X-Ray 06/24/20 02:40 IMPRESSION: Bilateral lower lobe patchy pneumonia. Chest/Abdomen CTA 06/24/20 07:36 IMPRESSION: 1. No central or segmental pulmonary emboli. Evaluation of the subsegmental branches of the pulmonary arteries is limited due to respiratory motion artifact. 2. Patchy bilateral and asymmetric geographic areas of ground-glass attenuation without a discrete distributional predilection. Clinical correlation to exclude a multifocal pneumonia (including atypical infections such as COVID-19) is recommended. Assessment & Plan - Diagnosis (1) Acute respiratory failure with hypoxia Is this a current diagnosis for this admission?: Yes (2) Pneumonia due to COVID-19 virus Is this a current diagnosis for this admission?: Yes (3) Type 2 diabetes mellitus Qualifiers: Diabetes mellitus mcc insulin use: with mcc use Is this a current diagnosis for this admission?: Yes (4) Hypertension Qualifiers: Hypertension type: essential hypertension Qualified Code(s): I10 - Essential (primary) hypertension Is this a current diagnosis for this admission?: Yes (5) Hyperlipidemia Qualifiers: Hyperlipidemia type: unspecified Qualified Code(s): E78.5 - Hyperlipidemia, unspecified Is this a current diagnosis for this admission?: Yes (6) Chronic back pain Qualifiers: Back pain location: low back pain Is this a current diagnosis for this admission?: Yes (7) Tachycardia Is this a current diagnosis for this admission?: Yes - Time Time Spent with patient: 15-24 minutes Level of Care: IMCU Medications reviewed and adjusted accordingly: Yes Anticipated discharge: Home with Homehealth Anticipated DC Timeframe: Other - Plan Summary Plan Summary: cont curr med
[2020-06-28] MEDS: INSULIN LISPRO 100 UNIT/ML 3 ML VIAL SUBCUT SCH ×4 (10:45→21:31)
[2020-06-28] MEDS: ENOXAPARIN SODIUM INJ 40 MG/0.4 ML DISP.SYRIN SUBCUT SCH (10:48)
[2020-06-28] MEDS: VALSARTAN 160 MG TABLET PO SCH (10:49)
[2020-06-28] MEDS: ASCORBIC ACID 500 MG TABLET PO SCH ×2 (10:50→17:17)
[2020-06-28] MEDS: GABAPENTIN 300 MG CAPSULE PO SCH ×2 (10:50→21:32)
[2020-06-28] MEDS: ZINC SULFATE 220 MG CAPSULE PO SCH (10:50)
[2020-06-28] MEDS: FAMOTIDINE 20 MG TABLET PO SCH ×2 (10:50→21:32)
[2020-06-28] MEDS: HYDROCHLOROTHIAZIDE 12.5 MG TABLET PO SCH (10:50)
[2020-06-28] MEDS: ASPIRIN 81 MG TABLET, ENT COATED PO SCH (10:50)
[2020-06-28] MEDS: MECLIZINE HCL 25 MG TABLET PO SCH ×2 (10:50→17:17)
[2020-06-28] MEDS: CHOLECALCIFEROL (D3) 1,000 UNIT (25 MCG) TABLET PO SCH (10:51)
[2020-06-28] MEDS: METOPROLOL SUCCINATE 50 MG TAB.SR.24H PO SCH (10:51)
[2020-06-28] MEDS: ESCITALOPRAM OXALATE 10 MG TABLET PO SCH (10:51)
[2020-06-28] MEDS: CETIRIZINE 5 MG TABLET PO SCH (10:51)
[2020-06-28] MEDS: AZITHROMYCIN 250 MG TABLET PO SCH (10:51)
[2020-06-28] MEDS: CEFEPIME 1 GM/D5W RTU 1 GM/50 ML RTUPB IV SCH ×2 (10:57→21:32)
[2020-06-28] MEDS: DEXAMETHASONE SOD PHOS INJ 10 MG/1 ML VIAL IV SCH (11:03)
[2020-06-28] MEDS: INSULIN GLARGINE,HUM.REC.ANLOG 1,000 UNIT/10 ML VIAL SUBCUT SCH ×2 (11:05→21:31)
[2020-06-28] MEDS: DOCUSATE SODIUM 100 MG CAPSULE PO SCH ×2 (11:06→17:31)
[2020-06-28] MEDS: REMDESIVIR 100 MG in NORMAL SALINE 250 ML IV SCH (12:02)
[2020-06-28] MEDS ORDERED: INSULIN LISPRO 100 UNIT/ML 3 ML VIAL SUBCUT ONE (17:30)
[2020-06-29] MEDS: PANTOPRAZOLE SODIUM 40 MG TABLET.DR PO SCH (05:16)
[2020-06-29] MEDS: NYSTATIN 500000 UNIT/5 ML UDCUP PO SCH ×4 (05:16→23:15)
[2020-06-29 05:49] LABS: ALBUMIN 2.9 g/dL (3.5-5.0); ALKALINE PHOSPHATASE 54 U/L (38-126); ASPARTATE AMINO TRANSFERASE 39 U/L (14-36); BILIRUBIN,DIRECT 0.3 mg/dL (0.0-0.4); BILIRUBIN,TOTAL 0.6 mg/dL (0.2-1.3); BLOOD UREA NITROGEN 33 mg/dL (7-20); C-REACTIVE PROTEIN 17.8 mg/L (<10.0); CALCIUM 10.8 mg/dL (8.4-10.2); GLUCOSE 182 mg/dL (75-110); POTASSIUM 4.8 mmol/L (3.6-5.0)
[2020-06-29 05:52] LABS: ANION GAP 6 (5-19); CARBON DIOXIDE 24 mmol/L (22-30); CHLORIDE 105 mmol/L (98-107); HEMOGLOBIN 11.8 g/dL (12.0-15.5); MEAN CORPUSCULAR HEMOGLOBIN 27.3 pg (27.0-33.4); MEAN CORPUSCULAR HGB CONC 34.6 g/dL (32.0-36.0); MEAN CORPUSCULAR VOLUME 79 fl (80-97); PLATELET COUNT 261 10^3/uL (150-450); RED BLOOD COUNT 4.31 10^6/uL (3.72-5.28); RED CELL DISTRIBUTION WIDTH 14.6 % (11.5-14.0); WHITE BLOOD COUNT 7.1 10^3/uL (4.0-10.5)
[2020-06-29 06:28] LABS: ABSOLUTE LYMPHOCYTES# (MANUAL) 2.5 10^3/uL (0.5-4.7); ABSOLUTE MONOCYTES # (MANUAL) 0.8 10^3/uL (0.1-1.4); BASOPHILS % (MANUAL) 0 % (0-2); EOSINOPHILS % (MANUAL) 1 % (0-6); LYMPHOCYTES % (MANUAL) 35 % (13-45); MONOCYTES % (MANUAL) 11 % (3-13); SEGMENTED NEUTROPHILS % (MAN) 53 % (42-78); TOTAL CELLS COUNTED 100
[2020-06-29 06:30] LABS: ANISOCYTOSIS SLIGHT; OVALOCYTES SLIGHT; PLATELET COMMENT ADEQUATE; POIKILOCYTOSIS SLIGHT; TEAR DROP CELLS SLIGHT
[2020-06-29] MEDS: INSULIN LISPRO 100 UNIT/ML 3 ML VIAL SUBCUT SCH ×4 (09:58→21:54)
[2020-06-29] MEDS: ESCITALOPRAM OXALATE 10 MG TABLET PO SCH (10:00)
[2020-06-29] MEDS: METOPROLOL SUCCINATE 50 MG TAB.SR.24H PO SCH (10:00)
[2020-06-29] MEDS: MECLIZINE HCL 25 MG TABLET PO SCH ×2 (10:00→17:07)
[2020-06-29] MEDS: AZITHROMYCIN 250 MG TABLET PO SCH (10:00)
[2020-06-29] MEDS: CHOLECALCIFEROL (D3) 1,000 UNIT (25 MCG) TABLET PO SCH (10:01)
[2020-06-29] MEDS: FAMOTIDINE 20 MG TABLET PO SCH ×2 (10:02→21:54)
[2020-06-29] MEDS: ASCORBIC ACID 500 MG TABLET PO SCH ×2 (10:02→17:07)
[2020-06-29] MEDS: GABAPENTIN 300 MG CAPSULE PO SCH ×2 (10:02→21:54)
[2020-06-29] MEDS: DOCUSATE SODIUM 100 MG CAPSULE PO SCH ×2 (10:03→17:06)
[2020-06-29] MEDS: ZINC SULFATE 220 MG CAPSULE PO SCH (10:03)
[2020-06-29] MEDS: ASPIRIN 81 MG TABLET, ENT COATED PO SCH (10:03)
[2020-06-29] MEDS: DEXAMETHASONE SOD PHOS INJ 10 MG/1 ML VIAL IV SCH (10:04)
[2020-06-29] MEDS: CEFEPIME 1 GM/D5W RTU 1 GM/50 ML RTUPB IV SCH ×2 (10:05→21:55)
[2020-06-29] MEDS: ENOXAPARIN SODIUM INJ 40 MG/0.4 ML DISP.SYRIN SUBCUT SCH (10:07)
[2020-06-29] MEDS: INSULIN GLARGINE,HUM.REC.ANLOG 1,000 UNIT/10 ML VIAL SUBCUT SCH ×2 (10:08→21:54)
[2020-06-29] MEDS: CETIRIZINE 5 MG TABLET PO SCH (10:11)
[2020-06-29] MEDS: HYDROCHLOROTHIAZIDE 12.5 MG TABLET PO SCH (10:11)
[2020-06-29] MEDS: VALSARTAN 160 MG TABLET PO SCH (10:12)
--- NOTE | 2020-06-29 16:24 | PDOC PROGRESS REPORT ---
Subjective Date:: 06/29/20 Subjective:: Patient seen by the bedside, she has no new complaints admitted for Covid pneumo adebayo Reason For Visit: COVID PNEUMONIA Physical Exam Vital Signs: Temp Pulse Resp BP Pulse Ox 97.4 F 57 L 20 120/49 L 98 06/29/20 15:36 06/29/20 15:36 06/29/20 15:36 06/29/20 15:36 06/29/20 15:36 Intake & Output 06/28/20 06/29/20 06/30/20 06:59 06:59 06:59 Intake Total 1280 1690 390 Output Total 300 0 Balance 980 1690 390 Weight 101 kg 100.5 kg 100.5 kg General appearance: PRESENT: no acute distress Eye exam: PRESENT: PERRLA Respiratory exam: PRESENT: clear to auscultation sam Cardiovascular exam: PRESENT: +S1, +S2 GI/Abdominal exam: PRESENT: soft Results Laboratory Results: 06/29/20 05:16 06/29/20 05:16 06/29/20 06/29/20 05:16 05:16 WBC 7.1 RBC 4.31 Hgb 11.8 L Hct 34.0 L MCV 79 L MCH 27.3 MCHC 34.6 RDW 14.6 H Plt Count 261 Seg Neutrophils % Not Reportable Sodium 134.9 L Potassium 4.8 Chloride 105 Carbon Dioxide 24 Anion Gap 6 BUN 33 H Creatinine 0.71 Est GFR ( Amer) > 60 Glucose 182 H Calcium 10.8 H Ferritin 108.00 Total Bilirubin 0.6 AST 39 H Alkaline Phosphatase 54 C-Reactive Protein 17.8 H Total Protein 6.0 L Albumin 2.9 L 06/24/20 03:20 Blood Blood Culture - Final NO GROWTH IN 5 DAYS 06/24/20 02:48 Blood Blood Culture - Final NO GROWTH IN 5 DAYS 06/24/20 02:48 Troponin I < 0.012 Impressions: Chest X-Ray 06/24/20 02:40 IMPRESSION: Bilateral lower lobe patchy pneumonia. Chest/Abdomen CTA 06/24/20 07:36 IMPRESSION: 1. No central or segmental pulmonary emboli. Evaluation of the subsegmental branches of the pulmonary arteries is limited due to respiratory motion artifact. 2. Patchy bilateral and asymmetric geographic areas of ground-glass attenuation without a discrete distributional predilection. Clinical correlation to exclude a multifocal pneumonia (including atypical infections such as COVID-19) is recommended. Assessment & Plan - Diagnosis (1) Pneumonia due to COVID-19 virus Is this a current diagnosis for this admission?: Yes Plan: Continue IV dexamethasone (2) Acute respiratory failure with hypoxia Is this a current diagnosis for this admission?: Yes Plan: Continue oxygen supplementation - Time Time Spent with patient: 25-34 minutes Level of Care: IMCU Medications reviewed and adjusted accordingly: Yes Anticipated discharge: Home Anticipated DC Timeframe: Other
[2020-06-30] MEDS: PANTOPRAZOLE SODIUM 40 MG TABLET.DR PO SCH (05:17)
[2020-06-30] MEDS: NYSTATIN 500000 UNIT/5 ML UDCUP PO SCH ×4 (05:17→23:21)
[2020-06-30 05:29] LABS: ABSOLUTE EOSINOPHILS # (AUTO) 0.1 10^3/uL (0.0-0.6); ABSOLUTE LYMPHOCYTES (AUTO) 2.4 10^3/uL (0.5-4.7); ABSOLUTE MONOCYTES (AUTO) 0.8 10^3/uL (0.1-1.4); ABSOLUTE NEUT (AUTO) 4.4 10^3/uL (1.7-8.2); BASOPHILS % (AUTO) 0.4 % (0-2); EOSINOPHILS % (AUTO) 0.8 % (0-6); HEMATOCRIT 35.3 % (36.0-47.0); HEMOGLOBIN 11.9 g/dL (12.0-15.5); LYMPHOCYTES % (AUTO) 31.3 % (13-45); MEAN CORPUSCULAR HEMOGLOBIN 26.7 pg (27.0-33.4); MEAN CORPUSCULAR HGB CONC 33.6 g/dL (32.0-36.0); MEAN CORPUSCULAR VOLUME 79 fl (80-97); PLATELET COUNT 277 10^3/uL (150-450); RED BLOOD COUNT 4.44 10^6/uL (3.72-5.28); RED CELL DISTRIBUTION WIDTH 14.7 % (11.5-14.0); SEGMENTED NEUTROPHILS % (AUTO) 57.5 % (42-78); TOTAL CELLS COUNTED % (AUTO) 100 %; WHITE BLOOD COUNT 7.7 10^3/uL (4.0-10.5)
[2020-06-30 06:06] LABS: ALBUMIN 2.8 g/dL (3.5-5.0); ALKALINE PHOSPHATASE 63 U/L (38-126); ANION GAP 6 (5-19); ASPARTATE AMINO TRANSFERASE 29 U/L (14-36); BILIRUBIN,DIRECT 0.3 mg/dL (0.0-0.4); BILIRUBIN,TOTAL 0.5 mg/dL (0.2-1.3); BLOOD UREA NITROGEN 32 mg/dL (7-20); C-REACTIVE PROTEIN 9.5 mg/L (<10.0); CARBON DIOXIDE 25 mmol/L (22-30); CHLORIDE 105 mmol/L (98-107); GLUCOSE 208 mg/dL (75-110); POTASSIUM 4.5 mmol/L (3.6-5.0); TOTAL PROTEIN 5.8 g/dL (6.3-8.2)
[2020-06-30] MEDS: VALSARTAN 160 MG TABLET PO SCH (09:40)
[2020-06-30] MEDS: ESCITALOPRAM OXALATE 10 MG TABLET PO SCH (09:41)
[2020-06-30] MEDS: ASPIRIN 81 MG TABLET, ENT COATED PO SCH (09:41)
[2020-06-30] MEDS: FAMOTIDINE 20 MG TABLET PO SCH ×2 (09:41→22:18)
[2020-06-30] MEDS: HYDROCHLOROTHIAZIDE 12.5 MG TABLET PO SCH (09:41)
[2020-06-30] MEDS: GABAPENTIN 300 MG CAPSULE PO SCH ×2 (09:42→22:16)
[2020-06-30] MEDS: CHOLECALCIFEROL (D3) 1,000 UNIT (25 MCG) TABLET PO SCH (09:42)
[2020-06-30] MEDS: MECLIZINE HCL 25 MG TABLET PO SCH ×2 (09:42→17:22)
[2020-06-30] MEDS: METOPROLOL SUCCINATE 50 MG TAB.SR.24H PO SCH (09:43)
[2020-06-30] MEDS: ZINC SULFATE 220 MG CAPSULE PO SCH (09:43)
[2020-06-30] MEDS: ASCORBIC ACID 500 MG TABLET PO SCH ×2 (09:43→17:22)
[2020-06-30] MEDS: AZITHROMYCIN 250 MG TABLET PO SCH (09:43)
[2020-06-30] MEDS: INSULIN LISPRO 100 UNIT/ML 3 ML VIAL SUBCUT SCH ×4 (09:44→22:17)
[2020-06-30] MEDS: INSULIN GLARGINE,HUM.REC.ANLOG 1,000 UNIT/10 ML VIAL SUBCUT SCH ×2 (09:44→22:17)
[2020-06-30] MEDS: ENOXAPARIN SODIUM INJ 40 MG/0.4 ML DISP.SYRIN SUBCUT SCH (09:44)
[2020-06-30] MEDS: CEFEPIME 1 GM/D5W RTU 1 GM/50 ML RTUPB IV SCH ×2 (09:45→22:16)
[2020-06-30] MEDS: DEXAMETHASONE SOD PHOS INJ 10 MG/1 ML VIAL IV SCH (09:48)
[2020-06-30] MEDS: DOCUSATE SODIUM 100 MG CAPSULE PO SCH ×2 (09:48→17:22)
[2020-06-30] MEDS: CETIRIZINE 5 MG TABLET PO SCH (09:49)
--- NOTE | 2020-06-30 16:32 | PDOC PROGRESS REPORT ---
Subjective Date:: 06/30/20 Subjective:: Patient seen by the bedside, she has no new complaints admitted for Covid pneumo adebayo 06/30/2020 Patient seen by the bedside, she has no complaint, Reason For Visit: COVID PNEUMONIA Physical Exam Vital Signs: Temp Pulse Resp BP Pulse Ox 98.2 F 67 22 H 100/67 97 06/30/20 15:33 06/30/20 15:33 06/30/20 15:33 06/30/20 15:33 06/30/20 15:33 Intake & Output 06/29/20 06/30/20 07/01/20 06:59 06:59 06:59 Intake Total 1690 680 50 Output Total 0 Balance 1690 680 50 Weight 100.5 kg 100 kg General appearance: PRESENT: no acute distress Eye exam: PRESENT: PERRLA Respiratory exam: PRESENT: clear to auscultation sam Cardiovascular exam: PRESENT: +S1, +S2 Results Laboratory Results: 06/30/20 04:54 06/30/20 04:54 06/30/20 06/30/20 04:54 04:54 WBC 7.7 RBC 4.44 Hgb 11.9 L Hct 35.3 L MCV 79 L MCH 26.7 L MCHC 33.6 RDW 14.7 H Plt Count 277 Seg Neutrophils % 57.5 Sodium 135.5 L Potassium 4.5 Chloride 105 Carbon Dioxide 25 Anion Gap 6 BUN 32 H Creatinine 0.71 Est GFR ( Amer) > 60 Glucose 208 H Calcium 11.0 H Ferritin 96.10 Total Bilirubin 0.5 AST 29 Alkaline Phosphatase 63 C-Reactive Protein 9.5 Total Protein 5.8 L Albumin 2.8 L 06/24/20 02:48 Troponin I < 0.012 Impressions: Chest X-Ray 06/24/20 02:40 IMPRESSION: Bilateral lower lobe patchy pneumonia. Chest/Abdomen CTA 06/24/20 07:36 IMPRESSION: 1. No central or segmental pulmonary emboli. Evaluation of the subsegmental branches of the pulmonary arteries is limited due to respiratory motion artifact. 2. Patchy bilateral and asymmetric geographic areas of ground-glass attenuation without a discrete distributional predilection. Clinical correlation to exclude a multifocal pneumonia (including atypical infections such as COVID-19) is recommended. Assessment & Plan - Diagnosis (1) Pneumonia due to COVID-19 virus Is this a current diagnosis for this admission?: Yes Plan: Continue IV dexamethasone (2) Acute respiratory failure with hypoxia Is this a current diagnosis for this admission?: Yes Plan: Continue oxygen supplementation - Time Time Spent with patient: 15-24 minutes Level of Care: IMCU Medications reviewed and adjusted accordingly: Yes Anticipated discharge: Home Anticipated DC Timeframe: within 72 hours
[2020-07-01] MEDS: PANTOPRAZOLE SODIUM 40 MG TABLET.DR PO SCH (05:47)
[2020-07-01] MEDS: NYSTATIN 500000 UNIT/5 ML UDCUP PO SCH ×4 (05:47→23:15)
[2020-07-01 06:52] LABS: ALBUMIN 2.8 g/dL (3.5-5.0); ALKALINE PHOSPHATASE 59 U/L (38-126); ASPARTATE AMINO TRANSFERASE 38 U/L (14-36); BILIRUBIN,DIRECT 0.3 mg/dL (0.0-0.4); BILIRUBIN,TOTAL 0.6 mg/dL (0.2-1.3); BLOOD UREA NITROGEN 35 mg/dL (7-20); C-REACTIVE PROTEIN 5.3 mg/L (<10.0); CALCIUM 10.9 mg/dL (8.4-10.2); GLUCOSE 149 mg/dL (75-110); POTASSIUM 4.3 mmol/L (3.6-5.0); TOTAL PROTEIN 5.6 g/dL (6.3-8.2)
[2020-07-01 06:55] LABS: CARBON DIOXIDE 25 mmol/L (22-30); CHLORIDE 106 mmol/L (98-107)
[2020-07-01 07:00] LABS: ANION GAP 3 (5-19)
[2020-07-01 07:10] LABS: ABSOLUTE BASOPHILS # (AUTO) 0.1 10^3/uL (0.0-0.2); ABSOLUTE EOSINOPHILS # (AUTO) 0.1 10^3/uL (0.0-0.6); ABSOLUTE MONOCYTES (AUTO) 0.7 10^3/uL (0.1-1.4); ABSOLUTE NEUT (AUTO) 4.4 10^3/uL (1.7-8.2); BASOPHILS % (AUTO) 0.8 % (0-2); EOSINOPHILS % (AUTO) 1.4 % (0-6); HEMATOCRIT 34.2 % (36.0-47.0); HEMOGLOBIN 11.7 g/dL (12.0-15.5); LYMPHOCYTES % (AUTO) 35.9 % (13-45); MEAN CORPUSCULAR HEMOGLOBIN 26.9 pg (27.0-33.4); MEAN CORPUSCULAR HGB CONC 34.2 g/dL (32.0-36.0); MEAN CORPUSCULAR VOLUME 79 fl (80-97); MONOCYTES % (AUTO) 8.1 % (3-13); PLATELET COUNT 268 10^3/uL (150-450); RED BLOOD COUNT 4.35 10^6/uL (3.72-5.28); RED CELL DISTRIBUTION WIDTH 14.6 % (11.5-14.0); SEGMENTED NEUTROPHILS % (AUTO) 53.8 % (42-78); TOTAL CELLS COUNTED % (AUTO) 100 %; WHITE BLOOD COUNT 8.3 10^3/uL (4.0-10.5)
[2020-07-01] MEDS: INSULIN LISPRO 100 UNIT/ML 3 ML VIAL SUBCUT SCH ×4 (08:59→22:15)
[2020-07-01] MEDS: FAMOTIDINE 20 MG TABLET PO SCH ×2 (10:19→22:14)
[2020-07-01] MEDS: ZINC SULFATE 220 MG CAPSULE PO SCH (10:19)
[2020-07-01] MEDS: ASPIRIN 81 MG TABLET, ENT COATED PO SCH (10:19)
[2020-07-01] MEDS: CETIRIZINE 5 MG TABLET PO SCH (10:19)
[2020-07-01] MEDS: ASCORBIC ACID 500 MG TABLET PO SCH ×2 (10:19→17:26)
[2020-07-01] MEDS: GABAPENTIN 300 MG CAPSULE PO SCH ×2 (10:20→22:14)
[2020-07-01] MEDS: MECLIZINE HCL 25 MG TABLET PO SCH ×2 (10:20→17:26)
[2020-07-01] MEDS: ESCITALOPRAM OXALATE 10 MG TABLET PO SCH (10:21)
[2020-07-01] MEDS: CHOLECALCIFEROL (D3) 1,000 UNIT (25 MCG) TABLET PO SCH (10:22)
[2020-07-01] MEDS: HYDROCHLOROTHIAZIDE 12.5 MG TABLET PO SCH (10:23)
[2020-07-01] MEDS: DEXAMETHASONE SOD PHOS INJ 10 MG/1 ML VIAL IV SCH (10:24)
[2020-07-01] MEDS: DOCUSATE SODIUM 100 MG CAPSULE PO SCH ×2 (10:24→17:26)
[2020-07-01] MEDS: METOPROLOL SUCCINATE 50 MG TAB.SR.24H PO SCH (10:25)
[2020-07-01] MEDS: VALSARTAN 160 MG TABLET PO SCH (10:25)
[2020-07-01] MEDS: CEFEPIME 1 GM/D5W RTU 1 GM/50 ML RTUPB IV SCH (10:28)
[2020-07-01] MEDS: ENOXAPARIN SODIUM INJ 40 MG/0.4 ML DISP.SYRIN SUBCUT SCH (10:28)
[2020-07-01] MEDS: INSULIN GLARGINE,HUM.REC.ANLOG 1,000 UNIT/10 ML VIAL SUBCUT SCH ×2 (10:28→22:14)
[2020-07-01] MEDS: AZITHROMYCIN 250 MG TABLET PO SCH (10:32)
--- NOTE | 2020-07-01 13:54 | PDOC PROGRESS REPORT ---
Subjective Date:: 07/01/20 Subjective:: Patient is currently doing well Patient still required 2 to 3 L nasal cannula No fever no chills No chest pain Reason For Visit: COVID PNEUMONIA Physical Exam Vital Signs: Temp Pulse Resp BP Pulse Ox 98.2 F 68 18 121/48 L 94 07/01/20 11:38 07/01/20 11:38 07/01/20 11:38 07/01/20 11:38 07/01/20 11:38 Intake & Output 06/30/20 07/01/20 07/02/20 06:59 06:59 06:59 Intake Total 680 1442 Output Total 0 Balance 680 1442 Weight 100 kg 99.5 kg General appearance: PRESENT: no acute distress Eye exam: PRESENT: PERRLA Respiratory exam: PRESENT: chest wall tenderness Neurological exam: PRESENT: alert, awake, oriented to person, oriented to place, oriented to time, oriented to situation Results Laboratory Results: 07/01/20 06:05 07/01/20 06:05 07/01/20 07/01/20 06:05 06:05 WBC 8.3 RBC 4.35 Hgb 11.7 L Hct 34.2 L MCV 79 L MCH 26.9 L MCHC 34.2 RDW 14.6 H Plt Count 268 Seg Neutrophils % 53.8 Sodium 133.6 L Potassium 4.3 Chloride 106 Carbon Dioxide 25 Anion Gap 3 L BUN 35 H Creatinine 0.69 Est GFR ( Amer) > 60 Glucose 149 H Calcium 10.9 H Ferritin 95.20 Total Bilirubin 0.6 AST 38 H Alkaline Phosphatase 59 C-Reactive Protein 5.3 Total Protein 5.6 L Albumin 2.8 L 06/24/20 02:48 Troponin I < 0.012 Impressions: Chest X-Ray 06/24/20 02:40 IMPRESSION: Bilateral lower lobe patchy pneumonia. Chest/Abdomen CTA 06/24/20 07:36 IMPRESSION: 1. No central or segmental pulmonary emboli. Evaluation of the subsegmental branches of the pulmonary arteries is limited due to respiratory motion artifact. 2. Patchy bilateral and asymmetric geographic areas of ground-glass attenuation without a discrete distributional predilection. Clinical correlation to exclude a multifocal pneumonia (including atypical infections such as COVID-19) is recommended. 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 Is this a current diagnosis for this admission?: Yes (4) Hypertension Qualifiers: Hypertension type: essential hypertension Qualified Code(s): I10 - Esse ntial (primary) hypertension Is this a current diagnosis for this admission?: Yes (5) Hyperlipidemia Qualifiers: Hyperlipidemia type: unspecified Qualified Code(s): E78.5 - Hyperlipidemia, unspecified Is this a current diagnosis for this admission?: Yes (6) Chronic back pain Qualifiers: Back pain location: low back pain Is this a current diagnosis for this admission?: Yes (7) Tachycardia Is this a current diagnosis for this admission?: Yes - Time Time Spent with patient: 15-24 minutes Level of Care: IMCU Medications reviewed and adjusted accordingly: Yes Anticipated discharge: Home with Homehealth Anticipated DC Timeframe: within 48 hours - Plan Summary Plan Summary: Continues the current medications
[2020-07-02] MEDS: NYSTATIN 500000 UNIT/5 ML UDCUP PO SCH ×4 (05:06→23:42)
[2020-07-02] MEDS: PANTOPRAZOLE SODIUM 40 MG TABLET.DR PO SCH (05:06)
[2020-07-02 06:23] LABS: ABSOLUTE BASOPHILS # (AUTO) 0.1 10^3/uL (0.0-0.2); ABSOLUTE EOSINOPHILS # (AUTO) 0.1 10^3/uL (0.0-0.6); ABSOLUTE LYMPHOCYTES (AUTO) 2.9 10^3/uL (0.5-4.7); ABSOLUTE MONOCYTES (AUTO) 0.7 10^3/uL (0.1-1.4); ABSOLUTE NEUT (AUTO) 4.7 10^3/uL (1.7-8.2); EOSINOPHILS % (AUTO) 0.9 % (0-6); HEMATOCRIT 36.1 % (36.0-47.0); HEMOGLOBIN 12.3 g/dL (12.0-15.5); LYMPHOCYTES % (AUTO) 33.8 % (13-45); MEAN CORPUSCULAR VOLUME 79 fl (80-97); MONOCYTES % (AUTO) 8.8 % (3-13); PLATELET COUNT 275 10^3/uL (150-450); RED BLOOD COUNT 4.55 10^6/uL (3.72-5.28); RED CELL DISTRIBUTION WIDTH 14.9 % (11.5-14.0); SEGMENTED NEUTROPHILS % (AUTO) 55.5 % (42-78); TOTAL CELLS COUNTED % (AUTO) 100 %; WHITE BLOOD COUNT 8.5 10^3/uL (4.0-10.5)
[2020-07-02 07:01] LABS: ALBUMIN 2.9 g/dL (3.5-5.0); ALKALINE PHOSPHATASE 67 U/L (38-126); ASPARTATE AMINO TRANSFERASE 37 U/L (14-36); BILIRUBIN,DIRECT 0.3 mg/dL (0.0-0.4); BILIRUBIN,TOTAL 0.6 mg/dL (0.2-1.3); BLOOD UREA NITROGEN 34 mg/dL (7-20); C-REACTIVE PROTEIN 5.2 mg/L (<10.0); CALCIUM 11.6 mg/dL (8.4-10.2); GLUCOSE 159 mg/dL (75-110); POTASSIUM 4.2 mmol/L (3.6-5.0); TOTAL PROTEIN 5.8 g/dL (6.3-8.2)
[2020-07-02 07:05] LABS: CARBON DIOXIDE 26 mmol/L (22-30); CHLORIDE 104 mmol/L (98-107)
[2020-07-02 07:10] LABS: ANION GAP 6 (5-19)
[2020-07-02] MEDS: INSULIN LISPRO 100 UNIT/ML 3 ML VIAL SUBCUT SCH ×4 (08:11→22:01)
[2020-07-02] MEDS: DEXAMETHASONE SOD PHOS INJ 10 MG/1 ML VIAL IV SCH (10:06)
[2020-07-02] MEDS: ENOXAPARIN SODIUM INJ 40 MG/0.4 ML DISP.SYRIN SUBCUT SCH (10:07)
[2020-07-02] MEDS: ZINC SULFATE 220 MG CAPSULE PO SCH (10:08)
[2020-07-02] MEDS: ASCORBIC ACID 500 MG TABLET PO SCH ×2 (10:08→16:59)
[2020-07-02] MEDS: DOCUSATE SODIUM 100 MG CAPSULE PO SCH ×2 (10:08→16:59)
[2020-07-02] MEDS: VALSARTAN 160 MG TABLET PO SCH (10:08)
[2020-07-02] MEDS: CHOLECALCIFEROL (D3) 1,000 UNIT (25 MCG) TABLET PO SCH (10:08)
[2020-07-02] MEDS: GABAPENTIN 300 MG CAPSULE PO SCH ×2 (10:08→22:01)
[2020-07-02] MEDS: METOPROLOL SUCCINATE 50 MG TAB.SR.24H PO SCH (10:08)
[2020-07-02] MEDS: MECLIZINE HCL 25 MG TABLET PO SCH ×2 (10:08→16:59)
[2020-07-02] MEDS: HYDROCHLOROTHIAZIDE 12.5 MG TABLET PO SCH (10:09)
[2020-07-02] MEDS: FAMOTIDINE 20 MG TABLET PO SCH ×2 (10:09→22:01)
[2020-07-02] MEDS: INSULIN GLARGINE,HUM.REC.ANLOG 1,000 UNIT/10 ML VIAL SUBCUT SCH ×2 (10:09→22:01)
[2020-07-02] MEDS: ASPIRIN 81 MG TABLET, ENT COATED PO SCH (10:09)
[2020-07-02] MEDS: ESCITALOPRAM OXALATE 10 MG TABLET PO SCH (10:09)
[2020-07-02] MEDS: CETIRIZINE 5 MG TABLET PO SCH (10:12)
--- NOTE | 2020-07-02 13:29 | PDOC PROGRESS REPORT ---
Subjective Date:: 07/02/20 Subjective:: Patient is currently doing well Patient still required 2 to 3 L nasal cannula No fever no chills No chest pain Reason For Visit: COVID PNEUMONIA Physical Exam Vital Signs: Temp Pulse Resp BP Pulse Ox 98.1 F 63 18 132/56 H 93 07/02/20 12:00 07/02/20 12:00 07/02/20 12:00 07/02/20 12:00 07/02/20 12:00 Intake & Output 07/01/20 07/02/20 07/03/20 06:59 06:59 06:59 Intake Total 1442 940 Balance 1442 940 Weight 99.5 kg 98.9 kg General appearance: PRESENT: no acute distress, well-developed, well-nourished Head exam: PRESENT: atraumatic, normocephalic Eye exam: PRESENT: conjunctiva pink, EOMI, PERRLA. ABSENT: scleral icterus Ear exam: PRESENT: normal external ear exam Mouth exam: PRESENT: moist, tongue midline Neck exam: PRESENT: full ROM. ABSENT: carotid bruit, JVD, lymphadenopathy, thyromegaly Respiratory exam: PRESENT: clear to auscultation sam Cardiovascular exam: PRESENT: RRR. ABSENT: diastolic murmur, rubs, systolic murmur Vascular exam: PRESENT: normal capillary refill GI/Abdominal exam: PRESENT: normal bowel sounds, soft. ABSENT: distended, guarding, mass, organolmegaly, rebound, tenderness Rectal exam: PRESENT: deferred Neurological exam: PRESENT: alert, awake, oriented to person, oriented to place, oriented to time, oriented to situation, CN II-XII grossly intact. ABSENT: motor sensory deficit Psychiatric exam: PRESENT: appropriate affect, normal mood. ABSENT: homicidal ideation, suicidal ideation Skin exam: PRESENT: dry, intact, warm. ABSENT: cyanosis, rash Results Laboratory Results: 07/02/20 05:45 07/02/20 05:45 07/02/20 07/02/20 05:45 05:45 WBC 8.5 RBC 4.55 Hgb 12.3 Hct 36.1 MCV 79 L MCH 27.0 MCHC 34.0 RDW 14.9 H Plt Count 275 Seg Neutrophils % 55.5 Sodium 136.2 L Potassium 4.2 Chloride 104 Carbon Dioxide 26 Anion Gap 6 BUN 34 H Creatinine 0.68 Est GFR ( Amer) > 60 Glucose 159 H Calcium 11.6 H Ferritin 82.00 Total Bilirubin 0.6 AST 37 H Alkaline Phosphatase 67 C-Reactive Protein 5.2 Total Protein 5.8 L Albumin 2.9 L 06/24/20 02:48 Troponin I < 0.012 Impressions: Chest X-Ray 06/24/20 02:40 IMPRESSION: Bilateral lower lobe patchy pneumonia. Chest/Abdomen CTA 06/24/20 07:36 IMPRESSION: 1. No central or segmental pulmonary emboli. Evaluation of the subsegmental branches of the pulmonary arteries is limited due to respiratory motion artifact. 2. Patchy bilateral and asymmetric geographic areas of ground-glass attenuation without a discrete distributional predilection. Clinical correlation to exclude a multifocal pneumonia (including atypical infections such as COVID-19) is recom mended. Assessment & Plan - Diagnosis (1) Acute respiratory failure with hypoxia Is this a current diagnosis for this admission?: Yes (2) Pneumonia due to COVID-19 virus Is this a current diagnosis for this admission?: Yes (3) Type 2 diabetes mellitus Qualifiers: Diabetes mellitus technician terminal and repeater insulin use: with longterm use Is this a current diagnosis for this admission?: Yes (4) Hypertension Qualifiers: Hypertension type: essential hypertension Qualified Code(s): I10 - Essential (primary) hypertension Is this a current diagnosis for this admission?: Yes (5) Hyperlipidemia Qualifiers: Hyperlipidemia type: unspecified Qualified Code(s): E78.5 - Hyperlipidemia, unspecified Is this a current diagnosis for this admission?: Yes (6) Chronic back pain Qualifiers: Back pain location: low back pain Is this a current diagnosis for this admission?: Yes (7) Tachycardia Is this a current diagnosis for this admission?: Yes - Time Time Spent with patient: 15-24 minutes Level of Care: IMCU Medications reviewed and adjusted accordingly: Yes Anticipated discharge: Home with Homehealth Anticipated DC Timeframe: within 24 hours - Plan Summary Plan Summary: We will get the physical therapy evaluations
[2020-07-03] MEDS: PANTOPRAZOLE SODIUM 40 MG TABLET.DR PO SCH (05:02)
[2020-07-03] MEDS: NYSTATIN 500000 UNIT/5 ML UDCUP PO SCH (05:02)
[2020-07-03 07:05] LABS: ABSOLUTE BASOPHILS # (AUTO) 0.1 10^3/uL (0.0-0.2); ABSOLUTE EOSINOPHILS # (AUTO) 0.1 10^3/uL (0.0-0.6); ABSOLUTE LYMPHOCYTES (AUTO) 3.2 10^3/uL (0.5-4.7); ABSOLUTE MONOCYTES (AUTO) 0.7 10^3/uL (0.1-1.4); ABSOLUTE NEUT (AUTO) 4.6 10^3/uL (1.7-8.2); BASOPHILS % (AUTO) 1.5 % (0-2); EOSINOPHILS % (AUTO) 0.9 % (0-6); HEMATOCRIT 36.3 % (36.0-47.0); HEMOGLOBIN 12.1 g/dL (12.0-15.5); LYMPHOCYTES % (AUTO) 36.7 % (13-45); MEAN CORPUSCULAR HEMOGLOBIN 26.6 pg (27.0-33.4); MEAN CORPUSCULAR HGB CONC 33.3 g/dL (32.0-36.0); MEAN CORPUSCULAR VOLUME 80 fl (80-97); MONOCYTES % (AUTO) 7.9 % (3-13); PLATELET COUNT 239 10^3/uL (150-450); RED BLOOD COUNT 4.55 10^6/uL (3.72-5.28); RED CELL DISTRIBUTION WIDTH 14.8 % (11.5-14.0); TOTAL CELLS COUNTED % (AUTO) 100 %; WHITE BLOOD COUNT 8.7 10^3/uL (4.0-10.5)
[2020-07-03 07:28] LABS: ALBUMIN 2.8 g/dL (3.5-5.0); ALKALINE PHOSPHATASE 64 U/L (38-126); ASPARTATE AMINO TRANSFERASE 36 U/L (14-36); BILIRUBIN,DIRECT 0.3 mg/dL (0.0-0.4); BILIRUBIN,TOTAL 0.6 mg/dL (0.2-1.3); BLOOD UREA NITROGEN 34 mg/dL (7-20); CALCIUM 11.4 mg/dL (8.4-10.2); GLUCOSE 144 mg/dL (75-110); POTASSIUM 4.2 mmol/L (3.6-5.0); TOTAL PROTEIN 5.7 g/dL (6.3-8.2)
[2020-07-03 07:31] LABS: CARBON DIOXIDE 25 mmol/L (22-30); CHLORIDE 105 mmol/L (98-107)
[2020-07-03 07:35] LABS: C-REACTIVE PROTEIN < 5.0 mg/L (<10.0)
[2020-07-03 07:36] LABS: ANION GAP 4 (5-19)
[2020-07-03] MEDS: INSULIN LISPRO 100 UNIT/ML 3 ML VIAL SUBCUT SCH (08:20)
[2020-07-03] MEDS: FAMOTIDINE 20 MG TABLET PO SCH (09:46)
[2020-07-03] MEDS: CHOLECALCIFEROL (D3) 1,000 UNIT (25 MCG) TABLET PO SCH (09:46)
[2020-07-03] MEDS: MECLIZINE HCL 25 MG TABLET PO SCH (09:46)
[2020-07-03] MEDS: DOCUSATE SODIUM 100 MG CAPSULE PO SCH (09:46)
[2020-07-03] MEDS: ZINC SULFATE 220 MG CAPSULE PO SCH (09:46)
[2020-07-03] MEDS: ASCORBIC ACID 500 MG TABLET PO SCH (09:46)
[2020-07-03] MEDS: GABAPENTIN 300 MG CAPSULE PO SCH (09:46)
[2020-07-03] MEDS: VALSARTAN 160 MG TABLET PO SCH (09:46)
[2020-07-03] MEDS: ESCITALOPRAM OXALATE 10 MG TABLET PO SCH (09:46)
[2020-07-03] MEDS: METOPROLOL SUCCINATE 50 MG TAB.SR.24H PO SCH (09:46)
[2020-07-03] MEDS: CETIRIZINE 5 MG TABLET PO SCH (09:47)
[2020-07-03] MEDS: DEXAMETHASONE SOD PHOS INJ 10 MG/1 ML VIAL IV SCH (09:47)
[2020-07-03] MEDS: HYDROCHLOROTHIAZIDE 12.5 MG TABLET PO SCH (09:47)
[2020-07-03] MEDS: ASPIRIN 81 MG TABLET, ENT COATED PO SCH (09:47)
[2020-07-03] MEDS: INSULIN GLARGINE,HUM.REC.ANLOG 1,000 UNIT/10 ML VIAL SUBCUT SCH (09:48)
[2020-07-03] MEDS: ENOXAPARIN SODIUM INJ 40 MG/0.4 ML DISP.SYRIN SUBCUT SCH (09:49)
--- NOTE | 2020-07-03 10:17 | PDOC DISCHARGE SUMMARY ---
Impression - Admit/DC Date/PCP Admission Date/Primary Care Provider: 06/24/20 08:26 NIMO ORDOÑEZ PA-C Discharge Date: 07/03/20 - Discharge Diagnosis (1) Acute respiratory failure with hypoxia Is this a current diagnosis for this admission?: Yes (2) Pneumonia due to COVID-19 virus Is this a current diagnosis for this admission?: Yes (3) Type 2 diabetes mellitus Is this a current diagnosis for this admission?: Yes (4) Hypertension Is this a current diagnosis for this admission?: Yes (5) Hyperlipidemia Is this a current diagnosis for this admission?: Yes (6) Chronic back pain Is this a current diagnosis for this admission?: Yes (7) Tachycardia Is this a current diagnosis for this admission?: Yes - Additional Information Discharge Diet: Diabetic Referrals: NIMO ORDOÑEZ PA-C [Primary Care Provider] - 07/09/20 8:30 am Prescriptions: Dexamethasone 2 mg PO DAILY #5 tablet Doxycycline Hyclate 100 mg PO BID #10 tablet. Aspirin [Ecotrin 81 mg EC Tablet] 81 mg PO DAILY #30 tabec Insulin Lispro [Humalog Insulin (Lispro) 100 unit/mL] 0 - 12 unit SUBCUT ACHS #1 unit Insulin Glargine,Hum.rec.anlog [Lantus Insulin 100 Unit/1 ml 10 ml] 10 unit SUBCUT DAILY #1 unit Ascorbic Acid [Vitamin C 500 mg Tablet] 500 mg PO DAILY #30 tablet Home Medications: Metformin HCl [Glucophage 500 mg Tablet] 1,000 mg PO DAILY 07/25/11 Metoprolol Succinate [Toprol Xl 25 mg Tab.sr] 50 mg PO DAILY 07/25/11 Valsartan/Hydrochlorothiazide [Valsartan-Hctz 320-12.5 mg Tab] 1 each PO DAILY 02/03/16 Dexlansoprazole [Dexilant 60 mg Capsule] 60 mg PO DAILY 06/24/20 Escitalopram Oxalate [Lexapro] 20 mg PO DAILY 06/24/20 Fenofibrate [Lipofen] 150 mg PO DAILY 06/24/20 Gabapentin [Neurontin] 600 mg PO BID 06/24/20 Levocetirizine Dihydrochloride [Xyzal] 5 mg PO DAILY 06/24/20 Meclizine HCl [Antivert 25 mg Tablet] 25 mg PO BID 06/24/20 Sitagliptin Phosphate [Januvia 50 mg Tablet] 100 mg PO DAILY 06/24/20 Ascorbic Acid [Vitamin C 500 mg Tablet] 500 mg PO DAILY #30 tablet 07/03/20 Aspirin [Ecotrin 81 mg EC Tablet] 81 mg PO DAILY #30 tabec 07/03/20 Dexamethasone 2 mg PO DAILY #5 tablet 07/03/20 Doxycycline Hyclate 100 mg PO BID #10 tablet. 07/03/20 Insulin Glargine,Hum.rec.anlog [Lantus Insulin 100 Unit/1 ml 10 ml] 10 unit SUBCUT DAILY #1 unit 07/03/20 Insulin Lispro [Humalog Insulin (Lispro) 100 unit/mL] 0 - 12 unit SUBCUT ACHS #1 unit 07/03/20 History of Present Illiness History of Present Illness: HERON NI is a 70 year old female 70-year-old female with a history of the type 2 diabetes hypertension hyperlipidemia chronic back problems morbid obesity Came to the emergency department With a complaining of cough and shortness of breath and fever started since last Patient has been diagnosed with the Covid last week Patient started with a fever cough shortness of breath couple of days back In the emergency department patient O2 sat was 80%Patient was put on oxygen Patient's denied any chest pain still very short of breath Patient's Covid test is positive Patient at this time admit with the Covid protocol Hospital Course Hospital Course: Is a 70-year-old female admitted for the respiratory failure hypoxia and COVID- 19 pneumonia Patient is treated with the antiviral drugs dexamethasone and a plasma treatment Patient is responds very well Also have a urinary tract infections treated with IV cefepime Is back to the baseline with the room air Patient's cut down the steroid to the p.o. Patient have a physical therapy walk without oxygen doing well At this point patient is discharged home with the stable conditions will give her temporary sliding scale by p.o. prednisone discussed with the patient about the checking the blood sugar watch for any hypoglycemia We will follow the patient next week in the office Continues the vitamin C zinc aspirin and vitamin D Discussed with the regarding the patient's current conditions Physical Exam Vital Signs: Temp Pulse Resp BP Pulse Ox 97.4 F 58 L 11 L 127/48 H 95 07/03/20 08:18 07/03/20 08:18 07/03/20 08:18 07/03/20 08:18 07/03/20 08:18 Intake & Output 07/02/20 07/03/20 07/04/20 06:59 06:59 06:59 Intake Total 940 1220 Balance 940 1220 Weight 98.9 kg 100.4 kg General appearance: PRESENT: no acute distress, well-developed, well-nourished Head exam: PRESENT: atraumatic, normocephalic Eye exam: PRESENT: conjunctiva pink, EOMI, PERRLA. ABSENT: scleral icterus Ear exam: PRESENT: normal external ear exam Mouth exam: PRESENT: moist, tongue midline Neck exam: ABSENT: carotid bruit, JVD, lymphadenopathy, thyromegaly Respiratory exam: PRESENT: clear to auscultation sam. ABSENT: rales, rhonchi, wheezes Cardiovascular exam: PRESENT: RRR. ABSENT: diastolic murmur, rubs, systolic murmur Pulses: PRESENT: normal dorsalis pedis pul Vascular exam: PRESENT: normal capillary refill GI/Abdominal exam: PRESENT: normal bowel sounds, soft. ABSENT: distended, guarding, mass, organolmegaly, rebound, tenderness Rectal exam: PRESENT: deferred Extremities exam: PRESENT: full ROM. ABSENT: calf tenderness, clubbing, pedal edema Neurological exam: PRESENT: alert, awake, oriented to person, oriented to place, oriented to time, oriented to situation, CN II-XII grossly intact. ABSENT: motor sensory deficit Psychiatric exam: PRESENT: appropriate affect, normal mood. ABSENT: homicidal ideation, suicidal ideation Skin exam: PRESENT: dry, intact, warm. ABSENT: cyanosis, rash Results Laboratory Results: WBC 8.7 10^3/uL (4.0-10.5) 07/03/20 06:32 RBC 4.55 10^6/uL (3.72-5.28) 07/03/20 06:32 Hgb 12.1 g/dL (12.0-15.5) 07/03/20 06:32 Hct 36.3 % (36.0-47.0) 07/03/20 06:32 MCV 80 fl (80-97) 07/03/20 06:32 MCH 26.6 pg (27.0-33.4) L 07/03/20 06:32 MCHC 33.3 g/dL (32.0-36.0) 07/03/20 06:32 RDW 14.8 % (11.5-14.0) H 07/03/20 06:32 Plt Count 239 10^3/uL (150-450) 07/03/20 06:32 Lymph % (Auto) 36.7 % (13-45) 07/03/20 06:32 [place] % (Auto) 7.9 % (3-13) 07/03/20 06:32 Eos % (Auto) 0.9 % (0-6) 07/03/20 06:32 Baso % (Auto) 1.5 % (0-2) 07/03/20 06:32 Absolute Neuts (auto) 4.6 10^3/uL (1.7-8.2) 07/03/20 06:32 Absolute Lymphs (auto) 3.2 10^3/uL (0.5-4.7) 07/03/20 06:32 Absolute Monos (auto) 0.7 10^3/uL (0.1-1.4) 07/03/20 06:32 Absolute Eos (auto) 0.1 10^3/uL (0.0-0.6) 07/03/20 06:32 Absolute Basos (auto) 0.1 10^3/uL (0.0-0.2) 07/03/20 06:32 Total Counted 100 06/29/20 05:16 Seg Neutrophils % 53.0 % (42-78) 07/03/20 06:32 Seg Neuts % (Manual) 53 % (42-78) 06/29/20 05:16 Lymphocytes % (Manual) 35 % (13-45) 06/29/20 05:16 Monocytes % (Manual) 11 % (3-13) 06/29/20 05:16 Eosinophils % (Manual) 1 % (0-6) 06/29/20 05:16 Basophils % (Manual) 0 % (0-2) 06/29/20 05:16 Abs Neuts (Manual) 3.8 10^3/uL (1.7-8.2) 06/29/20 05:16 Abs Lymphs (Manual) 2.5 10^3/uL (0.5-4.7) 06/29/20 05:16 Abs Monocytes (Manual) 0.8 10^3/uL (0.1-1.4) 06/29/20 05:16 Absolute Eos (Manual) 0.1 10^3/uL (0.0-0.6) 06/29/20 05:16 Abs Basophils (Manual) 0.0 10^3/uL (0.0-0.2) 06/29/20 05:16 Platelet Comment ADEQUATE 06/29/20 05:16 Poikilocytosis SLIGHT 06/29/20 05:16 Anisocytosis SLIGHT 06/29/20 05:16 Tear Drop Cells SLIGHT 06/29/20 05:16 Ovalocytes SLIGHT 06/29/20 05:16 PT 13.9 SEC (11.4-15.4) 06/24/20 02:48 INR 1.05 06/24/20 02:48 VBG pH 7.45 (7.30-7.42) H 06/24/20 02:48 VBG pCO2 33.7 mmHg (35-63) L 06/24/20 02:48 VBG HCO3 22.6 mmol/L (20-32) 06/24/20 02:48 VBG Base Excess -0.8 mmol/L 06/24/20 02:48 Sodium 133.7 mmol/L (137-145) L 07/03/20 06:32 Potassium 4.2 mmol/L (3.6-5.0) 07/03/20 06:32 Chloride 105 mmol/L (98-107) 07/03/20 06:32 Carbon Dioxide 25 mmol/L (22-30) 07/03/20 06:32 Anion Gap 4 (5-19) L 07/03/20 06:32 BUN 34 mg/dL (7-20) H 07/03/20 06:32 Creatinine 0.71 mg/dL (0.52-1.25) 07/03/20 06:32 Est GFR ( Amer) > 60 (>60) 07/03/20 06:32 Est GFR (MDRD) Non-Af > 60 (>60) 07/03/20 06:32 Glucose 144 mg/dL (75-110) H 07/03/20 06:32 POC Glucose 117 mg/dL (70-110) H 07/03/20 08:19 Lactic Acid 2.8 mmol/L (0.7-2.1) H 06/24/20 09:40 Calcium 11.4 mg/dL (8.4-10.2) H 07/03/20 06:32 Ferritin 85.20 ng/mL (11.1-264.0) 07/03/20 06:32 Total Bilirubin 0.6 mg/dL (0.2-1.3) 07/03/20 06:32 Direct Bilirubin 0.3 mg/dL (0.0-0.4) 07/03/20 06:32 Neonat Total Bilirubin Not Reportable 07/03/20 06:32 Neonat Direct Bilirubin Not Reportable 07/03/20 06:32 Neonat Indirect Bili Not Reportable 07/03/20 06:32 AST 36 U/L (14-36) 07/03/20 06:32 ALT 26 U/L (<35) 07/03/20 06:32 Alkaline Phosphatase 64 U/L (38-126) 07/03/20 06:32 Troponin I < 0.012 ng/mL 06/24/20 02:48 C-Reactive Protein < 5.0 mg/L (<10.0) 07/03/20 06:32 Total Protein 5.7 g/dL (6.3-8.2) L 07/03/20 06:32 Albumin 2.8 g/dL (3.5-5.0) L 07/03/20 06:32 Urine Color YELLOW 06/24/20 03:34 Urine Appearance SLIGHTLY-CLOUDY 06/24/20 03:34 Urine pH 6.0 (5.0-9.0) 06/24/20 03:34 Ur Specific [place] 1.023 06/24/20 03:34 Urine Protein 30 mg/dL (NEGATIVE) H 06/24/20 03:34 Urine Glucose (UA) >=500 mg/dL (NEGATIVE) H 06/24/20 03:34 Urine Ketones 20 mg/dL (NEGATIVE) H 06/24/20 03:34 Urine Blood NEGATIVE (NEGATIVE) 06/24/20 03:34 Urine Nitrite (Reflex) NEGATIVE (NEGATIVE) 06/24/20 03:34 Urine Bilirubin NEGATIVE (NEGATIVE) 06/24/20 03:34 Urine Urobilinogen NEGATIVE mg/dL (<2.0) 06/24/20 03:34 Leukocyte Esterase Rfl TRACE (NEGATIVE) H 06/24/20 03:34 Urine RBC (Auto) 4 /HPF 06/24/20 03:34 Urine WBC (Reflex) 3 /HPF 06/24/20 03:34 Squamous Epi Cells Auto 3 /HPF 06/24/20 03:34 Urine Ascorbic Acid 40 (NEGATIVE) H 06/24/20 03:34 [place]yle Human Metapneumo PCR NOT DETECTED (NOT DETECT) 06/24/20 05:47 Adenovirus (PCR) NOT DETECTED (NOT DETECT) 06/24/20 05:47 B. pertussis DNA (PCR) NOT DETECTED (NOT DETECT) 06/24/20 05:47 B.parapertussis DNA PCR NOT DETECTED (NOT DETECT) 06/24/20 05:47 C. pneumoniae DNA (PCR) NOT DETECTED (NOT DETECT) 06/24/20 05:47 Coronavirus OC43 (PCR) NOT DETECTED (NOT DETECT) 06/24/20 05:47 Coronavirus HKU1 (PCR) NOT DETECTED (NOT DETECT) 06/24/20 05:47 Coronavirus 229E (PCR) NOT DETECTED (NOT DETECT) 06/24/20 05:47 Coronavirus NL63 (PCR) NOT DETECTED (NOT DETECT) 06/24/20 05:47 Influenza A (H1) PCR NOT DETECTED (NOT DETECT) 06/24/20 05:47 Influ A (H1N1/09) PCR NOT DETECTED (NOT DETECT) 06/24/20 05:47 Influenza A (H3) PCR NOT DETECTED (NOT DETECT) 06/24/20 05:47 Influenza Type A (PCR) NOT DETECTED (NOT DETECT) 06/24/20 05:47 Influenza Type B (PCR) NOT DETECTED (NOT DETECT) 06/24/20 05:47 M. pneumoniae (PCR) NOT DETECTED (NOT DETECT) 06/24/20 05:47 Parainfluenza 1 (PCR) NOT DETECTED (NOT DETECT) 06/24/20 05:47 Parainfluenza 2 (PCR) NOT DETECTED (NOT DETECT) 06/24/20 05:47 Parainfluenza 3 (PCR) NOT DETECTED (NOT DETECT) 06/24/20 05:47 Parainfluenza 4 (PCR) NOT DETECTED (NOT DETECT) 06/24/20 05:47 RSV (PCR) NOT DETECTED (NOT DETECT) 06/24/20 05:47 Entero/Rhino (PCR) NOT DETECTED (NOT DETECT) 06/24/20 05:47 SARS-CoV-2 (PCR) DETECTED (NOT DETECT) H 06/24/20 05:47 Blood Type A POSITIVE 06/24/20 09:40 06/24/20 02:48 Troponin I < 0.012 Impressions: Chest X-Ray 06/24/20 02:40 IMPRESSION: Bilateral lower lobe patchy pneumonia. Chest/Abdomen CTA 06/24/20 07:36 IMPRESSION: 1. No central or segmental pulmonary emboli. Evaluation of the subsegmental branches of the pulmonary arteries is limited due to respiratory motion artifact. 2. Patchy bilateral and asymmetric geographic areas of ground-glass attenuation without a discrete distributional predilection. Clinical correlation to exclude a multifocal pneumonia (including atypical infections such as COVID-19) is recommended. Plan Time Spent: Greater than 30 Minutes Stroke Is this a Stroke Patient?: No Acute Heart Failure Is this a Heart Failure Patient?: No
[2020-07-03 11:39] VITALS: BP 128/67
== END 2020-07-03 12:15 | disposition home health service (06) | DRG 177 ==
LOC: ER 02:19 → EH 08:26 → 3S 10:33
PROVIDERS: ADMIT Family Medicine; ATTEND Family Medicine
PROC: XW13325 Transfusion of Convalescent Plasma (Nonautologous) into Peripheral Vein, Percutaneous Approach, New Technology Group 5 (ICD-10-PCS; principal; 2020-06-24)
PROC: XW033E5 Introduction of Remdesivir Anti-infective into Peripheral Vein, Percutaneous Approach, New Technology Group 5 (ICD-10-PCS; 2020-06-24)
DX: U07.1 COVID-19 (principal); J12.82 Pneumonia due to coronavirus disease 2019; J96.01 Acute respiratory failure with hypoxia; E11.9 Type 2 diabetes mellitus without complications; I10 Essential (primary) hypertension; E78.5 Hyperlipidemia, unspecified; G89.29 Other chronic pain; E66.01 Morbid (severe) obesity due to excess calories; K21.9 Gastro-esophageal reflux disease without esophagitis; R00.0 Tachycardia, unspecified; B96.89 Other specified bacterial agents as the cause of diseases classified elsewhere; M54.5 Low back pain; Z96.653 Presence of artificial knee joint, bilateral; Z79.4 Long term (current) use of insulin; Z79.82 Long term (current) use of aspirin; Z79.899 Other long term (current) drug therapy; Z79.52 Long term (current) use of systemic steroids
CPT/HCPCS: 0202U; 36415; 36430; 71045; 71275; 80053; 81001; 82728; 82803; 82962; 83605; 84484; 85025; 85610; 86140; 86900; 86901; 87040; 87086; 87088; 87186; 93005; 93010; 96360; 99285; C9803; J0456; J0692; J1100; J1650; J1815; J3490; J7050; J7120